=== PATIENT | male | born 1930 | race Caucasian/White ===

== ENCOUNTER 2017-12-02 09:29 | Emergency (ER) | payer MEDICARE, BC ==
[2017-12-02 10:01] LABS: #Lymphocytes 0.7 thou/uL (1.20-3.40); #Monocytes 0.5 thou/uL (0.11-0.59); #Neutrophils 4.8 thou/uL (1.40-6.50); %Basophils 0.6 % (0.0-1.0); %Eosinophils 0.8 % (0.0-10.0); %Lymphocytes 11.1 % (21.0-51.0); %Monocytes 8.4 % (0.0-10.0); %Neutrophils 79.1 % (42.0-75.0); Hemoglobin 14.6 g/dL (14.0-18.0); Mean Corpuscular HGB CONC 33.9 g/dL (32.0-36.0); Mean Corpuscular Volume 88.4 fl (80.0-94.0); Mean Platelet Volume 7.2 fL (7.4-10.4); Platelet Count 235 thou/uL (130-400); RBC Distribution Width 11.8 % (11.5-14.5); Red Blood Cell (RBC) Count 4.86 mill/uL (4.70-6.10); White Blood Cell (WBC) Count 6.1 thou/uL (4.8-10.8)
[2017-12-02 10:22] LABS: ALT (SGPT) 14 U/L (8-55); AST (SGOT) 18 U/L (5-34); Albumin 4.1 g/dL (3.4-4.8); Alkaline Phosphatase 79 U/L (40-150); Anion Gap 11 mmol/L (10-20); BUN (Urea Nitrogen) 15 mg/dL (8.4-25.7); Bilirubin, Total 1.2 mg/dL (0.2-1.2); Calc. Creatinine Clearance 0 mL/min (70-130); Calcium 9.2 mg/dL (7.8-10.44); Carbon Dioxide 30 mmol/L (23-31); Chloride 95 mmol/L (98-107); Estimated GFR-MDRD 56; Globulin 3.4 g/dL (2.4-3.5); Glucose 123 mg/dL (83-110); Potassium 4.1 mmol/L (3.5-5.1); Protein, Total 7.5 g/dL (5.8-8.1); Sodium 132 mmol/L (136-145)
[2017-12-02 10:25] LABS: CKMB 2.4 ng/mL (0-6.6)
--- NOTE | 2017-12-02 10:31 | RAD ---
RADIOGRAPH CHEST 1 VIEW: HISTORY: 87-year-old male with nausea and emesis. FINDINGS: The thoracic aorta is tortuous and ectatic. There is no evidence of air space density, pneumothorax, or pulmonary edema. The lateral costophrenic angles are sharp. There are sternotomy wires. IMPRESSION: 1. No acute pulmonary findings. 2. Ectasia of thoracic aorta. 3. Status post open heart surgery. aleisha romero POS: [facility]
[2017-12-02 11:03] LABS: Bilirubin Negative (Negative); Blood, Urine Negative (Negative); Glucose, Urine (Dipstick) Negative (Negative); Leukocyte Negative (Negative); Nitrite Negative (Negative); Protein, Urine (Dipstick) Negative (Neg-Trace); Urobilinogen 0.2 mg/dL (0.2-1.0)
[2017-12-02 11:04] LABS: Clarity Clear (Clear)
== END 2017-12-02 13:26 | disposition home or self-care (01) ==
LOC: ERS 09:29
DX: B34.9 Viral infection, unspecified (principal); E78.5 Hyperlipidemia, unspecified; I10 Essential (primary) hypertension; Z79.82 Long term (current) use of aspirin; Z79.01 Long term (current) use of anticoagulants; Z79.899 Other long term (current) drug therapy
CPT/HCPCS: 36415; 71045; 80053; 81003; 82553; 84484; 85025; 93005

== ENCOUNTER 2017-12-08 03:15 | Emergency (ER) | payer MEDICARE, BC ==
[2017-12-08 03:46] LABS: #Basophils 0.1 thou/uL (0.0-0.2); #Eosinphils 0.1 thou/uL (0.0-0.7); #Lymphocytes 1.5 thou/uL (1.20-3.40); #Monocytes 0.8 thou/uL (0.11-0.59); #Neutrophils 5.1 thou/uL (1.40-6.50); %Basophils 0.7 % (0.0-1.0); %Eosinophils 1.2 % (0.0-10.0); %Lymphocytes 19.6 % (21.0-51.0); %Monocytes 10.9 % (0.0-10.0); %Neutrophils 67.5 % (42.0-75.0); Hemoglobin 14.7 g/dL (14.0-18.0); Mean Corpuscular HGB CONC 33.1 g/dL (32.0-36.0); Mean Corpuscular Hemoglobin 29.1 pg (27.0-31.0); Mean Corpuscular Volume 88.1 fl (80.0-94.0); Mean Platelet Volume 7.2 fL (7.4-10.4); Platelet Count 237 thou/uL (130-400); Red Blood Cell (RBC) Count 5.05 mill/uL (4.70-6.10); White Blood Cell (WBC) Count 7.5 thou/uL (4.8-10.8)
[2017-12-08 04:00] LABS: Bilirubin Negative (Negative); Blood, Urine Negative (Negative); Clarity CLEAR (Clear); Glucose, Urine (Dipstick) Negative (Negative); Leukocyte Negative (Negative); Nitrite Negative (Negative); Protein, Urine (Dipstick) Negative (Neg-Trace); Urobilinogen 0.2 mg/dL (0.2-1.0); pH, Urine 7.5 (5.0-9.0)
[2017-12-08 04:06] LABS: ALT (SGPT) 14 U/L (8-55); AST (SGOT) 16 U/L (5-34); Albumin 4.3 g/dL (3.4-4.8); Alkaline Phosphatase 81 U/L (40-150); Anion Gap 11 mmol/L (10-20); BUN (Urea Nitrogen) 16 mg/dL (8.4-25.7); Bilirubin, Total 1.5 mg/dL (0.2-1.2); Calc. Creatinine Clearance 0 mL/min (70-130); Calcium 10.1 mg/dL (7.8-10.44); Carbon Dioxide 28 mmol/L (23-31); Chloride 97 mmol/L (98-107); Estimated GFR-MDRD 56; Globulin 3.5 g/dL (2.4-3.5); Glucose 103 mg/dL (83-110); Potassium 3.8 mmol/L (3.5-5.1); Protein, Total 7.8 g/dL (5.8-8.1); Sodium 132 mmol/L (136-145)
== END 2017-12-08 05:56 | disposition home or self-care (01) ==
LOC: ERS 03:15
DX: R19.7 Diarrhea, unspecified (principal); E78.5 Hyperlipidemia, unspecified; I10 Essential (primary) hypertension; Z79.82 Long term (current) use of aspirin; Z79.899 Other long term (current) drug therapy
CPT/HCPCS: 36415; 80053; 81003; 85025; 99284

== ENCOUNTER 2017-12-20 08:34 | Outpatient (CLI) | payer MEDICARE, BC ==
[2017-12-20] MEDS ORDERED: ISOVUE-370 76%-LOCM 1 ML ONE (13:23)
== END 2017-12-20 08:35 | disposition home or self-care (01) ==
LOC: BICCT 08:34
PROVIDERS: ATTEND Internal Medicine Gastroenterology
DX: R63.4 Abnormal weight loss (principal); K30 Functional dyspepsia; R53.83 Other fatigue; R42 Dizziness and giddiness; K80.80 Other cholelithiasis without obstruction; K57.30 Diverticulosis of large intestine without perforation or abscess without bleeding; I71.4 Abdominal aortic aneurysm, without rupture; N28.89 Other specified disorders of kidney and ureter; Z86.010 Personal history of colon polyps
CPT/HCPCS: 74177

== ENCOUNTER 2017-12-24 09:06 | Outpatient (CLI) | payer MEDICARE, BC ==
--- NOTE | 2017-12-24 12:48 | CT ---
CHEST CT WITH CONTRAST: HISTORY: Renal mass. The patient was recently diagnosed with left kidney cancer. Evaluate for metastases. COMPARISON: None. TECHNIQUE: Chest CT performed with IV contrast. Coronal reformatted images are submitted for interpretation. FINDINGS: No mediastinal mass, lymphadenopathy, or hematoma. Heart size is within normal limits. No pericardi al effusion. There are coronary artery calcifications. There is mild dilatation of the ascending th oracic aorta measuring 4.4 x 4.1 cm. The descending thoracic aorta is tortuous. Visualized upper solid organs are grossly unremarkable. Multiple hypodensities in the right renal co rtex are compatible with cysts. CT evidence of cholelithiasis without evidence of cholecystitis. Trace bilateral pleural effusions. Adjacent scar/atelectasis. Calcified granuloma in the right lowe r lobe. No consolidation or mass. No pneumothorax. No lytic or blastic lesions in the osseous structures. IMPRESSION: 1. No evidence of parenchymal metastases. 2. Trace bilateral effusions. Adjacent scar and atelectasis. 3. CT evidence of cholelithiasis without evidence of cholecystitis. 5. Hypodensities in the right kidney compatible with simple/complex cyst. POS: [facility]
--- NOTE | 2017-12-24 15:35 | NM ---
WHOLE BODY BONE SCAN: Date: 12-24-17 History: Recent diagnosis of left kidney cancer. Evaluate for metastatic disease. Other specified dis orders of kidney and ureter. Radiopharmaceutical: 33 mCi Technetium 99M labelled MDP, IV. Views: Anterior posterior whole body. FINDINGS: There is mild increased uptake seen in the shoulders and bilateral knees as well as right foot in a d egenerative pattern. Focus of increased uptake is also seen at the base of the left thumb, also proba kalin related to degenerative changes. There are focal areas of increased uptake seen within right anterior upper ribs with the focal areas of increased uptake layering in a linear fashion. Probably representing the right 4th through 6th rib . There is slight sclerosis involving the right 4th, 5th, and 6th ribs anterolaterally which may acco unt for this finding representing remote fractures. No additional areas of abnormal uptake of radiotr acer is seen. Normal uptake is seen in the region of the kidneys and urinary bladder. IMPRESSION: 1. Focal areas of increased uptake within the right fourth through sixth anterior ribs which is likel y related to prior trauma as opposed to metastatic disease. There are no other abnormal areas of upta ke of radiotracer to seen to suggest osseous metastatic disease. 2. Degenerative changes. POS: [facility]
[2017-12-24] MEDS ORDERED: Iopamidol 370 76% 100 ML VIAL ONE (16:04)
== END 2017-12-24 09:07 | disposition home or self-care (01) ==
LOC: CT 09:06
PROVIDERS: ATTEND Urology
DX: N28.89 Other specified disorders of kidney and ureter (principal); I71.4 Abdominal aortic aneurysm, without rupture; I82.3 Embolism and thrombosis of renal vein; J98.11 Atelectasis; J98.4 Other disorders of lung
CPT/HCPCS: 71260; 78306; A9503

== ENCOUNTER 2018-01-04 07:49 | Outpatient (CLI) | payer MEDICARE, BC ==
[2018-01-04] MEDS ORDERED: Gadobenate Dimeglumine 529 MG/1 ML (20ML VIAL) ONE (13:51)
--- NOTE | 2018-01-06 19:28 | MRI ---
MRI OF THE PELVIS WITHOUT AND WITH CONTRAST: Comparison: MRI abdomen, 01-04-18 History: Left renal mass. Technique: Multiplanar, multisequence MRI images of the pelvis without and with IV contrast. FINDINGS: The mass in the lower pole of the left kidney cannot be seen on this examination. There dilatation of the infrarenal aorta. On this exam, it measures 4.7 cm in maximum dimension. This measured slightly larger just superior to the superior most slice of this exam. There is also aneurysmal dilatation of the bilateral common iliac arteries. The right common iliac artery measures 3.2 cm in greatest dimens ion. The left common iliac artery measures 2.8 cm in greatest dimension. No retroperitoneal adenopath y is seen. There is scattered diverticula in the colon. No marrow signal abnormality is present. IMPRESSION: 1. Annual dilatation of the infrarenal aorta and bilateral common iliac arteries. 2. Diverticulosis. POS: [facility]
--- NOTE | 2018-01-06 19:50 | MRI ---
MRI OF THE ABDOMEN WITHOUT AND WITH CONTRAST: Comparison: CT chest, 12-24-17. 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 Technique: Multiplanar, multisequence MRI images were obtained of the abdomen without and with IV con trast. FINDINGS: There is a large heterogeneously enhancing mass involving the lower pole of the left kidney measuring 8.2 cm in greatest dimension. There is expansion of the left renal vein with enhancing tumor thrombu s. Tumor thrombus extends into the inferior vena cava near the renal vein insertion and does not exte nd into the intrahepatic inferior vena cava. The tumor in the left kidney is extremely vascular and t here are multiple varices and increased blood supply to this tumor. There appears to be only a single left renal artery. However, there is aneurysmal dilatation of the ostium of the left renal artery wh ich measures 1.2 cm in width. A single renal artery is also seen on the right. No enlarged retroperitoneal lymph nodes. The infrarenal aorta is enlarged and measures approximately 4.9 cm in maximum dimension. There are nonenhancing foci of high T2 signal in the right kidney measur ing up 2.7 cm in size which represents simple cysts. The liver, gallbladder, adrenal glands, and spleen are unremarkable. There is a tiny nonenhancing wel l circumscribed focus of high T2 signal in the inferior portion of the pancreas measuring 8 mm in siz e which may represent a small cyst. There is a nonenhancing bilobed lesion demonstrating high T2 sign al in the body of the pancreas measuring 1.7 cm in size which may also represent a cyst although a pa ncreatic neoplasm cannot be excluded. No retroperitoneal adenopathy is seen. No marrow signal abnormality is present. IMPRESSION: 1. There is a mass in the left kidney which is concerning for a T3B renal cell carcinoma. This would be a Lucio stage 3A malignancy. 2. Aneurysmal dilatation of the infrarenal aorta. 3. There is aneurysmal enlargement of the takeoff of the left renal artery as above. 4. Right renal cyst. 5. Nonenhancing foci of high T2 signal in the pancreas may represent small pancreatic cyst. Cystic pa ncreatic neoplasm cannot be entirely excluded. POS: [facility]
== END 2018-01-04 07:50 | disposition home or self-care (01) ==
LOC: MRI 07:49
PROVIDERS: ATTEND Urology
DX: N28.89 Other specified disorders of kidney and ureter (principal); I71.4 Abdominal aortic aneurysm, without rupture; I82.3 Embolism and thrombosis of renal vein; I77.811 Abdominal aortic ectasia; N28.1 Cyst of kidney, acquired; K86.89 Other specified diseases of pancreas; K57.90 Diverticulosis of intestine, part unspecified, without perforation or abscess without bleeding
CPT/HCPCS: 72197; 74183; A9579

== ENCOUNTER → 2018-01-09 | Day surgery (SDC) | payer MEDICARE, BC ==
[~2018-01-09] MED LIST: Iopamidol 370 76% 100 ML VIAL ONE
--- NOTE | 2018-01-09 15:51 | CT ---
CT ANGIOGRAM ABDOMEN AND PELVIS WITH AND WITHOUT IV CONTRAST AND 3D RECONSTRUCTION IMAGES: Date: 01/09/18 HISTORY: Abdominal aortic aneurysm without rupture. COMPARISON: MRI abdomen dated 01/04/18. FINDINGS: As noted on the MRI examination, there is a large inferior pole heterogeneously enhancing left renal mass with extension of tumor thrombus into the left renal vein with expansion of the left renal vein and extension of tumor thrombus into the IVC. Right renal cysts are again present. There is mild inflammatory stranding seen on the left with prominent vessels in the left perirenal sp malgorzata, likely related to the heterogeneously enhancing tumor with increased vascular supply. The heart is at the upper limits of normal in size. There is bibasilar atelectasis with calcified granuloma at the right lung base. There is slight nodul ar density at the posterior right costophrenic angle, but this is most likely attributable to atelect asis as well. No discrete noncalcified pulmonary nodule is appreciated at either lung base. There is an infrarenal abdominal aortic aneurysm which extends to the level of the bifurcation which measures approximately 7.6 cm craniocaudal x 5.0 cm AP x 4.9 cm transverse. Again, this aneurysm exte nds to the aortic bifurcation where there is eccentric plaque and small outpouchings of contrast, whi ch could be related to either penetrating atheromatous ulcers or irregular atherosclerotic plaques. There is aneurysmal dilatation of the origin of the proximal left renal artery which measures 1.6 cm. This likely represents a saccular-type aneurysm with focal narrowing involving the proximal left norman al artery as well. There is mild to moderate narrowing involving the proximal single right renal raimundo ry. There is aneurysmal dilatation of the right common iliac artery, which measures 3.1 cm in maximal dim ensions with eccentric atherosclerotic plaque. There is also aneurysmal dilatation of the left common iliac artery measuring 2.8 cm in diameter. There is severe narrowing involving the origin and proximal aspect of the celiac artery with associat ed post-stenotic dilatation. The liver, spleen, pancreas, bilateral adrenal glands, and urinary bladder demonstrate a normal CT ap pearance. There is colonic diverticulosis. Degenerative changes are seen in the spine. There is a sclerotic density seen at T12 vertebral body l ikely related to a bone island. There is also a small bone island in the right femoral neck. Degenera tive changes are seen in the spine. No lytic lesion is visualized. There is a small sclerotic density in the lateral right 9th rib, which is difficult to characterize, but probably related to a bone isl and. Calcification seen in the dependent portion of the gallbladder lumen related to cholelithiasis. There is a 2.3 cm x 1.6 cm soft tissue density seen in the right aspect of the pelvis. This has calci fication seen at the periphery and could potentially represent a thrombosed aneurysm, but the lumen o f the right internal iliac artery appears to demonstrate mild bowing laterally. An extrinsic lesion i s felt less likely and is thought to be related to a thrombosed aneurysm. IMPRESSION: 1. Heterogeneously enhancing left renal mass, most compatible with renal cell carcinoma, with extens ion of tumor thrombus into the left renal vein and subsequently into the IVC with expansion of the le ft renal vein, as well as IVC in the region of tumor thrombus. 2. 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 3. Infrarenal abdominal aortic aneurysm with eccentric atherosclerotic plaque. The aneurysm extends to the aortic bifurcation with small areas of contrast extending into the areas of plaque, which coul d be related to associated penetrating atheromatous ulcerations or irregularity of the plaque. 4. 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 5. Severe narrowing involving the origin and proximal aspect of the celiac artery with associated po st-stenotic dilatation. Some of the narrowing may be related to associated arcuate ligament. 6. Cholelithiasis. 7. Remainder of the findings are as described above. POS: [facility]
== END ==
LOC: CT 12:30 → RAD 12:31
PROVIDERS: ATTEND Thoracic Surgery (Cardiothoracic Vascular Surgery)
DX: I71.4 Abdominal aortic aneurysm, without rupture (principal); N28.89 Other specified disorders of kidney and ureter; Q27.39 Arteriovenous malformation, other site; Q27.32 Arteriovenous malformation of vessel of lower limb; K80.20 Calculus of gallbladder without cholecystitis without obstruction; K57.30 Diverticulosis of large intestine without perforation or abscess without bleeding; Z88.8 Allergy status to other drugs, medicaments and biological substances
CPT/HCPCS: 74174; 82565

== ENCOUNTER 2018-01-14 05:40 | Day surgery (SDC) | payer MEDICARE, BC ==
[2018-01-11 14:27] VITALS: BMI 25.7
[2018-01-14 06:49] LABS: #Eosinphils 0.1 thou/uL (0.0-0.7); #Lymphocytes 0.7 thou/uL (1.20-3.40); #Monocytes 0.4 thou/uL (0.11-0.59); #Neutrophils 3.8 thou/uL (1.40-6.50); %Basophils 0.6 % (0.0-1.0); %Lymphocytes 13.7 % (21.0-51.0); %Monocytes 8.7 % (0.0-10.0); %Neutrophils 74.9 % (42.0-75.0); Hemoglobin 13.5 g/dL (14.0-18.0); Mean Corpuscular HGB CONC 33.9 g/dL (32.0-36.0); Mean Corpuscular Hemoglobin 29.5 pg (27.0-31.0); Mean Corpuscular Volume 87.1 fl (80.0-94.0); Mean Platelet Volume 6.3 fL (7.4-10.4); Platelet Count 201 thou/uL (130-400); RBC Distribution Width 12.3 % (11.5-14.5); Red Blood Cell (RBC) Count 4.57 mill/uL (4.70-6.10); White Blood Cell (WBC) Count 5.1 thou/uL (4.8-10.8)
[2018-01-14 07:07] LABS: Anion Gap 10 mmol/L (10-20); BUN (Urea Nitrogen) 13 mg/dL (8.4-25.7); Calc. Creatinine Clearance 47 mL/min (70-130); Calcium 9.1 mg/dL (7.8-10.44); Carbon Dioxide 27 mmol/L (23-31); Chloride 99 mmol/L (98-107); Estimated GFR-MDRD 57; Glucose 98 mg/dL (83-110); Potassium 3.6 mmol/L (3.5-5.1); Sodium 132 mmol/L (136-145)
[2018-01-14] MEDS ORDERED: Lidocaine 1% (PF) 30 ML VIAL ONE (07:52)
[2018-01-14] MEDS ORDERED: Midazolam HCl 2 mg/2 ml Vial ONE (08:20)
[2018-01-14] MEDS ORDERED: Fentanyl 250 MCG/5 ML VIAL ONE (08:20)
[2018-01-14] MEDS ORDERED: Iopamidol 370 76% 50 ML VIAL FS ONE (09:10)
--- NOTE | 2018-01-14 09:46 | OP ---
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 PROCEDURES: 1. Abdominal aortogram. 2. Right internal iliac artery angiogram. SURGEON: Dr. Hever Muniz ANESTHESIA: 1% lidocaine for local/1 mg Versed/25 mcg of fentanyl. FLUORO TIME: 22.4 minutes. CONTRAST TIME: 40 mL. PROCEDURE IN DETAIL: After consent was obtained, the patient was brought to radiographer cardiac catheterization, placed in supine position on radiographer cardiac catheterization table. Appropriate anesthetic monitor was placed. IV sedation was begun. Left groin was anesthetized with 1 % lidocaine. Ultrasound guidance was used to access the femoral artery percutaneously on the left side. A Contra catheter was passed into the abdominal aorta. Hand injected aortogram was performed illuminating the bifurcation. The catheter was guided down into the internal iliac artery. Multiple views and multiple hand injected arteriograms were performed to open up the iliac bifurcation. The internal iliac was grossly aneurysmal with multiple fenestrations. The angled Glidewire and a Shakir followed by a MINDA catheter were used to attempt to cannulate the internal iliac artery where it exited the aneurysmal portion of the internal iliac. I was never able to get into this internal iliac artery to allow us to embolize. Catheters and guidewires were removed. Manual pressure was held for hemostasis. I will have to have a longer discussion with he and his in regards to how to deal with his aneurysmal disease at this point. [facility]
== END 2018-01-14 13:53 | disposition home or self-care (01) ==
LOC: CCL 05:40
PROVIDERS: ATTEND Thoracic Surgery (Cardiothoracic Vascular Surgery)
PROC: B4001ZZ Plain Radiography of Abdominal Aorta using Low Osmolar Contrast (ICD-10-PCS; principal; 2018-01-14)
DX: I71.4 Abdominal aortic aneurysm, without rupture (principal); I25.10 Atherosclerotic heart disease of native coronary artery without angina pectoris; I10 Essential (primary) hypertension; E78.2 Mixed hyperlipidemia; N40.0 Benign prostatic hyperplasia without lower urinary tract symptoms; Z88.1 Allergy status to other antibiotic agents; Z88.2 Allergy status to sulfonamides; Z88.8 Allergy status to other drugs, medicaments and biological substances; Z95.1 Presence of aortocoronary bypass graft; Z82.49 Family history of ischemic heart disease and other diseases of the circulatory system
CPT/HCPCS: 36246; 75710; 76942; 80048; 85025; C1769 ×3; 36415; 99152; 99153; J1644; J2001; J2250; J3010

== ENCOUNTER 2018-03-04 07:54 | Inpatient (IN) | payer MEDICARE, BC ==
[2018-03-04] MEDS ORDERED: Lidocaine 1% w/Epinephrine 1:100K 20 ML VIAL ONE (08:30)
[2018-03-04 08:47] LABS: Bilirubin Negative (Negative); Blood, Urine Trace (Negative); Clarity CLEAR (Clear); Glucose, Urine (Dipstick) Negative (Negative); Leukocyte Negative (Negative); Nitrite Negative (Negative); Protein, Urine (Dipstick) Negative (Neg-Trace); Specific Gravity, Urine 1.006 (1.002-1.036); Urobilinogen 0.2 mg/dL (0.2-1.0); pH, Urine 7.5 (5.0-9.0)
[2018-03-04 08:49] LABS: #Basophils 0.1 thou/uL (0.0-0.2); #Eosinphils 0.2 thou/uL (0.0-0.7); #Lymphocytes 0.8 thou/uL (1.20-3.40); #Monocytes 0.6 thou/uL (0.11-0.59); #Neutrophils 7.6 thou/uL (1.40-6.50); %Basophils 0.6 % (0.0-1.0); %Eosinophils 1.8 % (0.0-10.0); %Lymphocytes 8.8 % (21.0-51.0); %Monocytes 6.5 % (0.0-10.0); %Neutrophils 82.3 % (42.0-75.0); Hemoglobin 11.7 g/dL (14.0-18.0); Mean Corpuscular HGB CONC 33.4 g/dL (32.0-36.0); Mean Corpuscular Hemoglobin 29.4 pg (27.0-31.0); Mean Corpuscular Volume 88.1 fl (80.0-94.0); Mean Platelet Volume 6.5 fL (7.4-10.4); Platelet Count 365 thou/uL (130-400); RBC Distribution Width 13.4 % (11.5-14.5); Red Blood Cell (RBC) Count 3.97 mill/uL (4.70-6.10); White Blood Cell (WBC) Count 9.2 thou/uL (4.8-10.8)
[2018-03-04 08:49] LABS: Bacteria/HPF None Seen HPF (None Seen); Hyaline Casts/LPF 0-3 HYALINE CAST LPF (0-3 Hyaline); RBC/HPF 0-3 HPF (0-3); Squamous Epithelial None Seen HPF (0-3); WBC/HPF 0-3 HPF (0-3)
[2018-03-04 08:56] LABS: INR-International Normal Ratio 1.1; PTT 28.2 SEC (22.9-36.1)
--- NOTE | 2018-03-04 09:10 | RAD ---
PORTABLE CHEST: Date: 03/04/18 HISTORY: Fall. COMPARISON: 12/02/17. FINDINGS: There is patchy infiltrate in the right lung base. Upper lung ybarra are clear. No evidence of vascul ar congestion. Heart size upper normal and stable. Postop sternotomy changes. IMPRESSION: Evidence of infiltrate in the right lower lung. POS: [facility]
[2018-03-04 09:12] LABS: ALT (SGPT) 17 U/L (8-55); AST (SGOT) 18 U/L (5-34); Albumin 3.8 g/dL (3.4-4.8); Alkaline Phosphatase 65 U/L (40-150); Anion Gap 13 mmol/L (10-20); BUN (Urea Nitrogen) 16 mg/dL (8.4-25.7); Bilirubin, Total 0.7 mg/dL (0.2-1.2); CK (CPK) 58 U/L (30-200); Calc. Creatinine Clearance 0 mL/min (70-130); Calcium 9.4 mg/dL (7.8-10.44); Carbon Dioxide 28 mmol/L (23-31); Chloride 98 mmol/L (98-107); Estimated GFR-MDRD 32; Glucose 138 mg/dL (83-110); Potassium 4.6 mmol/L (3.5-5.1); Protein, Total 6.8 g/dL (5.8-8.1); Sodium 134 mmol/L (136-145)
[2018-03-04 09:16] LABS: Troponin I Less than 0.010 ng/mL (< 0.028)
[2018-03-04] MEDS ORDERED: Adacel (T-DAP) 0.5 ML VIAL ONE (09:57)
--- NOTE | 2018-03-04 10:13 | CT ---
CT BRAIN WITHOUT CONTRAST: HISTORY: Fall, possible loss of consciousness, the patient is on blood thinners. Laceration to the posterior s calp, headache. FINDINGS: No evidence of acute infarction, hemorrhage, midline shift, or abnormal extraaxial fluid collections is seen. The ventricular size is appropriate and the basilar cisterns patent. The bony calvarium is intact. The visualized paranasal sinuses and mastoid air cells are well aerated. There is a scalp contusion in the left posterior parietal region. IMPRESSION: No CT evidence of acute intracranial process. POS: [facility]
--- NOTE | 2018-03-04 10:27 | CT ---
NONCONTRAST CT CERVICAL SPINE: DATE: 03/04/18. HISTORY: Unwitnessed fall. Patient on blood thinners. Laceration of posterior scalp. Injury after fall. TECHNIQUE: Contiguous axial CT images are obtained through the cervical spine to the level of the T3 vertebral b jp without IV contrast. Sagittal and coronal reformatted images are provided. FINDINGS: No acute fracture or subluxation is seen involving the cervical spine. Multilevel degenerative perez es are present with multilevel prominent bridging anterior osteophytes noted. There is narrowing of the intervertebral disk spaces at all levels of the cervical spine. Multilevel facet hypertrophic ch anges are present. At the C3-4 level, there is severe right-sided neural foraminal narrowing due to prominent uncinate p rocess hypertrophy and facet degenerative changes with moderate left-sided neural foraminal narrowing . There is moderate bilateral neural foraminal narrowing at the C4-5 level, again related to bony en croachment. There is mild to moderate bilateral neural foraminal narrowing at C5-6 level with mild t o moderate bilateral neural foraminal narrowing at the C6-7 level. There is no fracture or subluxation involving the cervical spine. Prevertebral soft tissues are within normal limits. There is partial visualization of a right pleural effusion. Median sternotomy wires are partially imaged. IMPRESSION: 1. Multilevel degenerative changes involving the cervical spine. No fracture or subluxation is pres ent. 2. Right pleural effusion incompletely imaged on this exam. POS: [facility]
--- NOTE | 2018-03-04 11:04 | CT ---
CT ABDOMEN AND PELVIS WITHOUT CONTRAST: HISTORY: Fall, recent nephrectomy 2 weeks ago, abdominal pain. FINDINGS: Comparison is made with the CTA of the abdomen and pelvis of 01/09/18. Absence of oral and IV contrast reduces the sensitivity of the exam, particularly for evaluation of s olid organs, vascular structures, and bowel. A small right pleural effusion is present which is enlarged in size since the previous study. No bashir e air is seen in the abdomen or pelvis. Thee is a small amount of free fluid in the abdomen and pelv is. The abdominal fluid is predominantly in the left retroperitoneum. There are interval postop mignon nges of left nephrectomy. Right-sided renal cysts are again seen. There is a tiny calculus in the anterior cortex of the left kidney. No calculi are seen of the right kidney. No calculi are seen in the right ureter or the uri nary bladder. There is a Spivey catheter in the urinary bladder. There is colonic diverticulosis. There are vascular calcifications with a stable 5 cm (AP dimension) abdominal aortic aneurysms in the right common iliac artery (3 cm), left common iliac artery (2.8 cm ), and right internal iliac artery (2.3 cm) is stable. There are degenerative changes in the spine. IMPRESSION: 1. Absence of IV contrast reduces the sensitivity of the exam. Solid organ injury cannot be complet lee excluded on the study. 2. Right pleural effusion. 3. A small amount of free fluid in the abdomen and pelvis. 4. Interval changes of left nephrectomy. 5. Stable aneurysms of the abdominal aorta, common iliac arteries, and the right internal iliac raimundo viet. 6. Colonic diverticulosis. 7. Right renal cysts. POS: [facility]
[2018-03-04 12:02] LABS: Troponin I 0.011 ng/mL (< 0.028)
[2018-03-04] MEDS ORDERED: Ondansetron ODT 4 MG TAB SL PRN (12:28)
[2018-03-04] MEDS ORDERED: Acetaminophen 325 MG TAB PO PRN (12:28)
[2018-03-04] MEDS ORDERED: Ondansetron HCl/PF 4 MG/2 ML Vial IVP PRN (12:28)
[2018-03-04 12:35] VITALS: BMI 24.6
[2018-03-04] MEDS ORDERED: Zolpidem Tartrate 5 MG TAB PO SCH (20:00)
[2018-03-04] MEDS ORDERED: traMADol HCl 50 MG TAB PO PRN (20:46)
[2018-03-04] MEDS: Sodium Chloride 0.9% 1,000 ML IV SCH (20:56)
[2018-03-04] MEDS: Docusate 100 MG CAP PO SCH (20:59)
[2018-03-04] MEDS: Tamsulosin HCl 0.4 MG CAP PO SCH (21:00)
[2018-03-04] MEDS: Atorvastatin Calcium 10 MG TAB PO SCH (21:00)
[2018-03-04] MEDS: Aspirin 81 mg Enteric Coated Tablet PO SCH (21:00)
[2018-03-04] MEDS ORDERED: Lorazepam 1 MG TAB PO SCH (23:30)
--- NOTE | 2018-03-04 23:46 | HP ---
DATE OF ADMISSION: 03/04/2018 CHIEF COMPLAINT: Found down at home. HISTORY OF PRESENT ILLNESS: This is an 87-year-old male patient of Dr. Italo Pandya'graciela who was found in his kitchen this morning by his at about 7:30, lying in a pool of his own blood fro m head laceration. Patient did not remember getting out of bed this morning, but evidently he had go ne out to get the newspaper head it on the kitchen table and was about to read, which was his usual a nd he evidently fell and hit his head causing the laceration. Since then he has not had any other co mplaints regarding his memory. He remembers all events leading up to last night when he went to bed, although his states that since his left nephrectomy 2 weeks ago at [facility], he has not sl ept well at all, any night. They have tried some melatonin for him, but that did not help at all act ually made him a little worse. He denies having any double vision or headaches, dizziness, or ringin g in his ears. Denies any chest discomfort or shortness of breath or nausea or vomiting, denies any changes to his bowels with this. He has a past medical history of a recent diagnosis of renal cell c arcinoma, being treated from [facility], also has a history of AAA asymptomatic, 5 cm AAA being fo llowed by Dr. Hever Muniz also has history of hypertension, hyperlipidemia, and BPH with lower urin saundra tract symptoms. He has a surgical history of left nephrectomy 2 weeks ago at [facility]. He also has a known 5-cm AAA that was an angiogram done by Dr. Muniz in December show an aneurysm, also ext ending to the right iliac with a need for embolization of the internal iliac. 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 MEDICATIONS: Tramadol, which has not really taken much of, melatonin 5 mg, Lipitor 10 mg a day, hydr ochlorothiazide 25 mg a day, Proscar 5 mg a day, Flomax 0.4 mg a day, and aspirin 81 mg a day. ALLERGIES: AMPICILLIN, PENICILLIN, CIPRO, and SULFA. Also has allergies to ZYRTEC and FIORELLA, both of those are more of an anxiety reaction after taking ZYRTEC and FIORELLA. SOCIAL HISTORY: He is . He is a retired gate agent. No smoking or alcohol. No illicit marsh bits. REVIEW OF SYSTEMS: As stated in the HPI, he denies any headache or visual changes, no troubles chewi ng or swallowing. No troubles with vision, smell, hearing, or taste. Denies any trouble with swallo wing. No troubles with cough, congestion, shortness of breath. No troubles with abdominal pain. No nausea or vomiting. No changes in bowel or bladder habits. Had a BM this morning, it was normal. Denies any hematemesis. Denies any melena or hematochezia. He has a Spivey in place since his nephre ctomy. He is scheduled to see Dr. Calderon in the clinic in 2 days for evaluation and to get the Spivey removed. He has had some weakness globally since the surgery, has noted some slight decrease i n exercise or walking tolerance, but has been walking every day since his surgery when he got home wa s not necessarily slow down on any of his usual daily habits. As stated in the HPI, he has not slept well for the last 2 weeks either. Denies any seizures. Denies any auditory or visual hallucination s any suicidal or homicidal ideations. Denies any paresis or paresthesias. PHYSICAL EXAMINATION: GENERAL: He is alert and oriented x4, lying in bed, very comfortably but a little bit restless. VITAL SIGNS: Temperature 97.2, pulse 68, BP is 156/82, respirations 20, O2 sats 93% on room air. HEENT: Essentially unremarkable. Pupils are equal, round, and reactive to light and accommodation. Extraocular movements are intact. His sclerae anicteric. His conjunctiva is not injected. NECK: Supple. No JVD, no bruits, no thyromegaly. LUNGS: Clear to auscultation bilaterally with no rales, rhonchi, or wheezes. HEART: S1, S2 with no rubs, murmurs, or gallops. See it is perceived as a regular rhythm and regula r rate. ABDOMEN: Has a midline efraín and a midline incision that is well healing. There is no erythema, n o drainage. Bowel sounds are positive throughout. His abdomen is soft, nontender, nondistended, no palpable hepatosplenomegaly. GENITOURINARY: Shows Spivey to gravity with yellow urine. EXTREMITIES: Good palpable pulses x4. No cyanosis, clubbing, or edema. NEUROLOGIC: Grossly intact with cranial nerves II-XII are equal and symmetrical. No sensory or therese r deficits noted. Strength is 4/5 in all extremities in both abduction and adduction. LABORATORY DATA AND X-RAY FINDINGS: White count is 9.2, H&H is 11.7 and 35.0 respectively with 365,0 00 platelets. Sodium 134, potassium 4.6, chloride 98, bicarbonate 28, BUN 16, creatinine 1.98, gluco se of 138. His CT of his head was negative for any acute findings, no blood, no evidence of any tumo rs from mets in the renal cell. Appearance on the chest from a CT of the C-spine which was negative other than arthritic type changes showed a slight pleural effusion. His CT of the abdomen and pelvis also showed a slight pleural effusion on the right side, but no other abnormalities in the solid org ans, his aneurysm is unchanged to his abdominal aorta as well as iliacs. He had troponins done and t hey were all negative x3. His beta-natriuretic peptide is 86. His CK is 58. CK-MB is normal at 2.0 . ASSESSMENT: Syncopal collapse with head laceration, which was treated in the emergency room. It is possible that what we are dealing with his sleep deprivation and fatigue from that resulting in this collapse. PLAN: We will continue some IV fluids here tonight, see if this help him sleep better tonight and ho pefully home in the morning.
[2018-03-05] MEDS ORDERED: Lorazepam 2 MG/ML VIAL SLOW IVP SCH (02:15)
[2018-03-05] MEDS ORDERED: ALPRAZolam 1 MG TAB PO SCH ×2 (06:15→20:00)
[2018-03-05] MEDS: Sodium Chloride 0.9% 1,000 ML IV SCH ×2 (06:17→16:59)
[2018-03-05] MEDS: Hydrochlorothiazide 25 MG TAB PO SCH (09:49)
[2018-03-05] MEDS: Docusate 100 MG CAP PO SCH ×2 (09:49→22:34)
[2018-03-05] MEDS: Finasteride 5 MG TAB PO SCH (09:49)
[2018-03-05] MEDS ORDERED: ALPRAZolam 1 MG TAB PO PRN (13:42)
--- NOTE | 2018-03-05 18:24 | CON ---
DATE OF CONSULTATION: 03/05/2018 REFERRING: Dr. Kelton Flores for urinary retention. HISTORY OF PRESENT ILLNESS: Mr. 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 The patient also has multiple aneurysms including left renal artery, abdominal aortic aneurysm. He was referred to [facility] due to complexity of his case. He underwent a left radical nephrectomy, retroperitoneal lymph node dissection IVC level [address] Phillip on 02/18/2018. He has followup appointment in March with Dr. Lombardo. He was discharged with indwelling Spivey catheter due to postop urinary retention at [facility], the amount of postvoid residual is unknown to me. He had a standing appointment with me as a walk-in tomorrow for a voiding trial ; however, he was admitted by Dr. Flores as he fell earlier this morning. CT of the neck and brain is unremarkable. Staging CT of the abdomen and pelvis stone protocol demonstrates no significant pathology of concern. The patient currently resting comfortably with daughter at bedside. He denies constipation , has been passing flatus. Urine output has been clear. PAST MEDICAL HISTORY: Hypertension, diverticulitis, hyperlipidemia, colon polyps, wandering atrial pacemaker, aortic insufficiency, abdominal aortic aneurysm, BPH, history of vasovagal episode, coronary artery disease, urethral stricture. PAST SURGICAL HISTORY: Hernia repair in 1986, cystoscopy, meatal urethral dilatation for wide caliber penile bulbar stricture 12/13/2012, CABG x3 on 06/22, recent left radical nephrectomy, retroperitoneal lymph node dissection, left renal vein and IVC thrombus level 2 at [facility] on 02/18/2018. CURRENT MEDICATIONS: Include Tylenol, Xanax, baby aspirin, Colace, finasteride , hydrochlorothiazide, Ativan, Zofran, tramadol, Flomax, Zofran. SOCIAL HISTORY: Lives at home with good family support. Daughter at bedside. ALLERGIES: SUDAFED, SULFA, AMPICILLIN, CIPROFLOXACIN. PHYSICAL EXAMINATION: VITAL SIGNS: Stable, 98, 64, 12, 96, 180/82. Urine output 650 of clear yellow urine output. GENERAL: Patient appears to be sleeping and easily arousable, alert and oriented. HEENT: Grossly Unremarkable. HEART: Regular rate. LUNGS: Clear. Decreased inspiratory effort. ABDOMEN: Soft. Midline laparotomy incision clean, dry, and intact. Mcgregor are in place. GENITOURINARY: Spivey catheter demonstrating clear yellow urine, uncircumcised testes are descended with no evidence of intratesticular mass. RECTAL: Digital rectal exam demonstrates prostate palpated within the discrete nodularity. No gross fecal impaction is appreciated. EXTREMITIES: No cyanosis, clubbing or edema. PERTINENT LABS AND IMAGING: White count 9, hemoglobin 11, platelet 365, creatinine is 1.98, baseline creatinine is 1.0-1.4. Urinalysis is unremarkable except for trace blood. Chest x-ray: March 04, 2018 no evidence of vascular congestion, that she infiltrated the right lung base CT the abdomen and pelvis without contrast: Right renal cyst, status post left nephrectomy. No hydronephrosis. Stable abdominal aortic, common iliac, right internal iliac artery CT of the brain negative IMPRESSION AND PLAN: 1. Mr. Rosales is an 87-year-old male with history of large left renal mass with IVC tumor thrombus level 2 status post left radical nephrectomy, tumor thrombectomy of IVC level 2 thrombus at [facility]. He has a postop followup at [facility] 2. Postop urinary retention. 3. Recent fall with workup negative. 4. History of benign prostatic hypertrophy. 5. History of urethral stricture. Spivey catheter recently passed without significant issues. The patient is currently on Flomax, Proscar as previous, we will remove Spivey catheter early tomorrow morning for a voiding trial and assess voiding parameters. MTDD
[2018-03-05] MEDS ORDERED: cloNIDine 0.1 MG TAB PO PRN (22:22)
[2018-03-05] MEDS ORDERED: Ondansetron HCl/PF 4 MG/2 ML Vial IVP PRN (22:23)
[2018-03-05] MEDS ORDERED: Ondansetron ODT 4 MG TAB PO PRN (22:23)
[2018-03-05] MEDS: Tamsulosin HCl 0.4 MG CAP PO SCH (22:34)
[2018-03-05] MEDS: Aspirin 81 mg Enteric Coated Tablet PO SCH (22:34)
[2018-03-05] MEDS: Atorvastatin Calcium 10 MG TAB PO SCH (22:34)
[2018-03-05] MEDS: diphenhydrAMINE 25 MG CAP PO PRN (22:35)
[2018-03-05] MEDS: Zolpidem Tartrate 5 MG TAB PO SCH (22:35)
[2018-03-06] MEDS: diphenhydrAMINE 25 MG CAP PO PRN (01:31)
[2018-03-06] MEDS: Sodium Chloride 0.9% 1,000 ML IV SCH (01:36)
[2018-03-06] MEDS ORDERED: cefTRIAXone\\ROCEPHIN 1 GM in Sodium Chloride 0.9% 100 ML IVPB SCH (08:00)
[2018-03-06] MEDS ORDERED: traZODone HCl 50 MG TAB PO PRN (08:15)
[2018-03-06] MEDS: Dextrose 5 %-0.45 % NaCl 1,000 ML IV SCH ×3 (09:30→23:22)
[2018-03-06 09:42] LABS: Bilirubin Negative (Negative); Blood, Urine Trace (Negative); Clarity CLEAR (Clear); Glucose, Urine (Dipstick) Negative (Negative); Leukocyte Small (Negative); Nitrite Negative (Negative); Protein, Urine (Dipstick) Negative (Neg-Trace); Specific Gravity, Urine 1.009 (1.002-1.036); Urobilinogen 0.2 mg/dL (0.2-1.0)
[2018-03-06 09:45] LABS: Bacteria/HPF Rare-Few HPF (None Seen); Hyaline Casts/LPF 0-3 HYALINE CAST LPF (0-3 Hyaline); Pathc Cast-AUWi Flag 0.14 (0-2.49); RBC/HPF 0-3 HPF (0-3); Squamous Epithelial 0-3 HPF (0-3)
[2018-03-06] MEDS: cefTRIAXone\\ROCEPHIN 1 GM in Sodium Chloride 0.9% 100 ML IVPB SCH (10:53)
[2018-03-06] MEDS: Docusate 100 MG CAP PO SCH ×2 (10:58→21:03)
[2018-03-06] MEDS: Hydrochlorothiazide 25 MG TAB PO SCH (10:58)
[2018-03-06] MEDS: Finasteride 5 MG TAB PO SCH (10:58)
--- NOTE | 2018-03-06 11:40 | PRG ---
DATE OF SERVICE: 03/06/2018 SUBJECTIVE: The patient appears frail; however, resting comfortably. at bedside. OBJECTIVE: VITAL SIGNS: Stable. He is afebrile, 97.7, 88, 22, 159/90. Previous I's and O 's 2175 in, 3425 out. ABDOMEN: Soft. The patient had a voiding trial this morning at 4:00 a.m., in which Spivey catheter was removed and unable to void. A bladder scan obtained demonstrates over 400 mL. Due to significant residual, with possible UTI component, a 16-Beninese indwelling Spivey catheter was replaced for true postvoid residual, 550 mL of clear yellow urine output. This is secured to gravity bag. Abdomen is soft. EXTREMITIES: No cyanosis, clubbing, or edema. PERTINENT LABORATORY DATA: No new labs. Creatinine yesterday was 1.98. Troponins are negative. Initial urinalysis was unremarkable for bacteria, negative UA; however, urine culture demonstrates greater than 100,000 Enterococcus and Pseudomonas. The patient has been provided Rocephin by primary care. Recheck UA C /S with replacement of Spivey catheter demonstrates negative nitrites, small leukocytes, 0-3 rbc's, 4-6 wbc's, 0-3 epithelials, rare few bacteria, yellow clear culture. Repeat urine culture is pending. IMPRESSION AND PLAN: Mr. Rosales is an 87-year-old male with, 1. History of benign prostatic hypertrophy. 2. Prior history of soft bulbar stricture. 3. History of large left renal mass with renal vein thrombus, level 2. Underwent left radical nephrectomy, lymph node dissection, thrombectomy at [facility], 02/18/2018. His efraín are removed at bedside. Incision is clean, dry, and intact. Spivey catheter secured. The patient is deconditioned and frail. I discussed the case with Dr. Flores. Agree that the patient is too frail to be discharged home for private care. Therefore, longterm rehab evaluation in progress. We will continue indwelling Spivey catheter for now until repeat urine culture is finalized. Continue benign prostatic hypertrophy medications. MTDD
--- NOTE | 2018-03-06 15:10 | RAD ---
MODIFIED BARIUM SWALLOW IN PRESENCE OF SPEECH THERAPIST: HISTORY: Dysphagia, oropharyngeal phase, feeding difficulties. FINDINGS: Laryngeal penetration is seen. No aspiration or persistent pooling of contrast in the valleculae or piriform sinuses identified. Please see recommendations of the speech therapist for further manageme nt. POS: LONNIE
[2018-03-06] MEDS ORDERED: traZODone HCl 50 MG TAB PO SCH (18:00)
[2018-03-06] MEDS: Atorvastatin Calcium 10 MG TAB PO SCH (21:02)
[2018-03-06] MEDS: Tamsulosin HCl 0.4 MG CAP PO SCH (21:02)
[2018-03-06] MEDS: Aspirin 81 mg Enteric Coated Tablet PO SCH (21:03)
[2018-03-06] MEDS: Zolpidem Tartrate 5 MG TAB PO SCH (21:06)
[2018-03-07] MEDS: Hydrochlorothiazide 25 MG TAB PO SCH (07:38)
[2018-03-07] MEDS: Finasteride 5 MG TAB PO SCH (07:38)
[2018-03-07] MEDS: Docusate 100 MG CAP PO SCH ×2 (07:39→20:32)
--- NOTE | 2018-03-07 11:25 | PRG ---
DATE OF SERVICE: 03/07/2018 SUBJECTIVE: The patient is doing well this morning. He is oriented x2. He was not aware that he wa s in [facility]. Otherwise, he does converse. He is desiring to go home. He is aware that he has a birthday in 2 days. OBJECTIVE: VITAL SIGNS: Temperature 97.8, pulse 74, respirations 14, pulse ox 94, blood pressure 116/72. HEART: Regular rate and rhythm. LUNGS: Clear. ABDOMEN: Soft and nontender. EXTREMITIES: With no edema. LABORATORY DATA: Previous white count is 9.2, H and H 11 and 35. ASSESSMENT: 1. 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 2. Indwelling Spivey catheter. 3. Urinary pyuria. 4. A 5 cm abdominal aortic aneurysm followed by Dr. Hever Muniz. 5. Hypertension. 6. Hyperlipidemia. 7. Benign prostatic hypertrophy. 8. Status post coronary artery bypass grafting, 2014. 9. Dementia. PLAN: 1. Physical therapy. 2. [facility] facility placement. 3. Continue IV antibiotics. 4. Recheck CBC and BMP in the a.m.
[2018-03-07] MEDS: cefTRIAXone\\ROCEPHIN 1 GM in Sodium Chloride 0.9% 100 ML IVPB SCH (11:59)
[2018-03-07] MEDS: Dextrose 5 %-0.45 % NaCl 1,000 ML IV SCH (12:02)
--- NOTE | 2018-03-07 12:29 | PRG ---
DATE OF SERVICE: 03/07/2018 SUBJECTIVE: The patient has been moved from telemetry to medical unit, at bedside. He has been restless, ambulating with assist, however, limited. relates the patient has been confused. PHYSICAL EXAMINATION: VITAL SIGNS: Stable 97.8, 70, 14, 97, 116/72. I's and O's 320 in and 1025 out. Urine output is ely ar yellow. GENERAL: The patient is alert and oriented x2 only, answers questions appropriately. ABDOMEN: Soft. Incision is clean, dry, and intact. Steri-Strips in place. GENITOURINARY: Spivey catheter adequately secured, draining clear yellow urine. LABORATORY DATA: There is no recent labs. Repeat urine culture is pending, currently on Rocephin. IMPRESSION AND PLAN: 1. Mr. Bartolo Rosales is an 87-year-old male with history of large left renal mass with tumor thrombus level 2 status post left radical nephrectomy tumor thrombectomy at [facility] 02/18/2018. Althou gh he has recuperated from his surgery adequately, he was discharged with an indwelling Spivey cathete r due to urinary retention, PVR unknown. He remains frail with limited mobility, confused. He will require [facility] facility rehabilitation to regain his strength. 2. Urinary retention, 550 mL PVR, failed voiding trial on this admission. Continue indwelling Spivey catheter. 3. Questionable urinary tract infection. Initial UA is grossly unremarkable for bacteria. Culture grew out 2 different species. I am unsure if this is true UTI. Repeat culture is pending, however, Rocephin was provided prior to obtaining UA C&S. We will await final urine culture regarding disposi tion regarding antibiotics. Given he has multiple drug allergies, may require Infectious Disease con sult as his mental status/confusion. Etiology is unclear. 4. History of soft bulbar stricture. 5. History of benign prostatic hypertrophy. We will continue to follow. Continue indwelling Spivey catheter for now.
--- NOTE | 2018-03-07 14:38 | PQF ---
DATE: 03-07-18 ATTN: DR. MANNY ARROYO Please exercise your independent, professional judgment in responding to the clarification form. Clinical indicators are provided on the bottom of this form for your review Please check appropriate box(s): [ ] Encephalopathy: Type: [ ] Acute [ ] Subacute [ ] Chronic [ ] Transient Alteration of Awareness [ ] Other diagnosis [ ] Unable to determine In addition, please specify: Present on Admission (POA): [ ] Yes [ ] No [ ] Unable to determine For continuity of documentation, please document condition throughout progress notes and discharge summary. Thank You. CLINICAL INDICATORS - SIGNS / SYMPTOMS / LABS CONSULT NOTE DR. MATOS 03-07-18: HE HAS BEEN RESTLESS, AMBULATING WITH ASSIST, HOWEVER, LIMITED. RELATES THE PATIENT HAS BEEN CONFUSED. GIVEN HI MULTIPLE DRUG ALLERGIES, MAY REQUIRE ID CONSULT HIS MENTAL/CONFUSION, ETIOLOGY IS UNCLEAR. PN DR. ARROYO 03-07-18: HE IS ORIENTED X2. HE WAS NOT AWARE THAT HE WAS IN HOSPITAL. RISK FACTORS: H&P: FALL, FOUND BY ON FLOOR IN A POOL OF BLOOD FROM HEAD LACERATION, HX OF RENAL CELL CARCINOMA, AAA, HTN CONSULT NOTE DR. NUNES 03-07-18: QUESTIONABLE UTI TREATMENTS: CONSULT NOTE DR. NUNES 03-07-18: HE REMAINS FRAIL WITH LIMITED MOBILITY, CONFUSED. HE WILL REQUIRE SNU REHAB TO REGAIN HIS STRENGTH. MAR: IVF, ROCEPHIN (This form is maintained as a part of the permanent medical record) 2014 [employer]. All Rights Reserved [email or web address] Office: [phone] [facility] CAMPUSShakila
[2018-03-07] MEDS: Aspirin 81 mg Enteric Coated Tablet PO SCH (20:31)
[2018-03-07] MEDS: Tamsulosin HCl 0.4 MG CAP PO SCH (20:31)
[2018-03-07] MEDS: Atorvastatin Calcium 10 MG TAB PO SCH (20:32)
[2018-03-07] MEDS: Zolpidem Tartrate 5 MG TAB PO SCH (20:49)
[2018-03-07] MEDS: diphenhydrAMINE 25 MG CAP PO PRN (21:16)
[2018-03-07 21:49] VITALS: TEMP 97.5
[2018-03-08] MEDS: Dextrose 5 %-0.45 % NaCl 1,000 ML IV SCH (04:21)
[2018-03-08 04:56] LABS: #Basophils 0.1 thou/uL (0.0-0.2); #Eosinphils 0.4 thou/uL (0.0-0.7); #Lymphocytes 0.8 thou/uL (1.20-3.40); #Monocytes 0.9 thou/uL (0.11-0.59); #Neutrophils 4.5 thou/uL (1.40-6.50); %Basophils 0.8 % (0.0-1.0); %Eosinophils 6.1 % (0.0-10.0); %Lymphocytes 11.6 % (21.0-51.0); %Monocytes 13.5 % (0.0-10.0); Hemoglobin 11.2 g/dL (14.0-18.0); Mean Corpuscular HGB CONC 33.1 g/dL (32.0-36.0); Mean Corpuscular Hemoglobin 28.7 pg (27.0-31.0); Mean Corpuscular Volume 86.7 fl (80.0-94.0); Platelet Count 289 thou/uL (130-400); RBC Distribution Width 13.1 % (11.5-14.5); Red Blood Cell (RBC) Count 3.89 mill/uL (4.70-6.10); White Blood Cell (WBC) Count 6.7 thou/uL (4.8-10.8)
[2018-03-08 05:06] LABS: Anion Gap 12 mmol/L (10-20); BUN (Urea Nitrogen) 13 mg/dL (8.4-25.7); Calc. Creatinine Clearance 39 mL/min (70-130); Calcium 8.6 mg/dL (7.8-10.44); Carbon Dioxide 23 mmol/L (23-31); Chloride 102 mmol/L (98-107); Estimated GFR-MDRD 48; Glucose 109 mg/dL (83-110); Potassium 3.3 mmol/L (3.5-5.1); Sodium 134 mmol/L (136-145)
--- NOTE | 2018-03-08 09:27 | PRG ---
INPATIENT GENITOURINARY PROGRESS NOTE DATE OF SERVICE: 03/08/2018 SUBJECTIVE: The patient is alert, at bedside. OBJECTIVE: VITAL SIGNS: Stable, afebrile. ABDOMEN: Soft, nontender, nondistended. GENITOURINARY: Spivey catheter draining clear yellow urine. LABORATORY DATA: Repeat urine culture demonstrated Enterococcus. White count 6 , hemoglobin 11, platelet 289. Creatinine 1.4. IMPRESSION AND PLAN: Mr. Rosales is an 87-year-old male with: 1. Deconditioned status, status post nephrectomy, radical; level 2 thrombectomy at [facility] 02/18/2018 with pathology consistent with renal cell carcinoma. 2. History of benign prostatic hypertrophy. 3. History of urethral stricture, bulbar. The patient with recurrent urinary retention on this admission, although UA is negative, urine culture demonstrates Enterococcus and Pseudomonas. He has no evidence of fever or leukocytosis. The patient has component of mental status changes, which may be multifactorial. Empiric antibiotic treatment for positive urine culture. He will continue his indwelling Spivey catheter until followup appointment with me 03/19/2018 at 1:15 for a voiding trial. The patient will go to inpatient rehab if approved today. Discussed with patient and the need for indwelling Spivey catheter to continue due to solitary kidney, persistent urinary retention with bacteriuria. Continue his BPH meds, Flomax and Avodart. Discussed with Dr. Cervantes, patient will continue his antibody etc. to follow-up with MTDD
--- NOTE | 2018-03-08 09:32 | PQF ---
DATE: 03-07-18 ATTN: DR. MANNY ARROYO Please exercise your independent, professional judgment in responding to the clarification form. Clinical indicators are provided on the bottom of this form for your review Please check appropriate box(s): [ ] UTI please specify if due to or related to (as applicable): [ ] Indwelling catheter [ ] Unable to determine etiology [ ] Contaminated urine specimen without UTI [ ] Other diagnosis [ ] Unable to determine In addition, please specify: Present on Admission (POA): [ ] Yes [ ] No [ ] Unable to determine For continuity of documentation, please document condition throughout progress notes and discharge summary. Thank You. CLINICAL INDICATORS - SIGNS / SYMPTOMS / LABS URINE: 03-04-18: URINE BLOOD:: TRACE H 03-06-18: URINE KETONES: 15 H URINE BLOOD: TRACE H UR LEUKOCYTE ESTERASE: SMALL H URINE WBC: 4-[address] MATOS 03-06-18: INITIAL URINALYSIS WAS UNREMARKABLE FOR BACTERIA, NEG UA; HOWEVER, URINE CULTURE DEMONSTRATES GREATER THAN 100,000 ENTEROCOCCUS AND PSEUDOMONAS. CONSULT DR. MATOS 03-07-18: QUESTIONABLE UTI PN DR. ARROYO 03-07-18: URINARY PYURIA RISK FACTORS: H&P: HE HAS HAD A STEWART IN PLACE SINCE HIS NEPHRECTOMY. TREATMENT: (DEC) IVF, ROCEPHIN (This form is maintained as a part of the permanent medical record) 2014 [employer] All Rights Reserved [email or web address] Office: [phone] [facility]
--- NOTE | 2018-03-08 09:34 | PQF ---
DATE: 03-07-18 ATTN: DR. MANNY ARROYO Please exercise your independent, professional judgment in responding to the clarification form. Clinical indicators are provided on the bottom of this form for your review Please check appropriate box(s): [ ] Encephalopathy: Type: [ ] Acute [ ] Subacute [ ] Chronic [ ] Transient Alteration of Awareness [ ] Other diagnosis [ ] Unable to determine In addition, please specify: Present on Admission (POA): [ ] Yes [ ] No [ ] Unable to determine For continuity of documentation, please document condition throughout progress notes and discharge summary. Thank You. CLINICAL INDICATORS - SIGNS / SYMPTOMS / LABS CONSULT NOTE DR. MATOS 03-07-18: HE HAS BEEN RESTLESS, AMBULATING WITH ASSIST, HOWEVER, LIMITED. RELATES THE PATIENT HAS BEEN CONFUSED. GIVEN HI MULTIPLE DRUG ALLERGIES, MAY REQUIRE ID CONSULT HIS MENTAL/CONFUSION, ETIOLOGY IS UNCLEAR. PN DR. ARROYO 03-07-18: HE IS ORIENTED X2. HE WAS NOT AWARE THAT HE WAS IN HOSPITAL. RISK FACTORS: H&P: FALL, FOUND BY ON FLOOR IN A POOL OF BLOOD FROM HEAD LACERATION, HX OF RENAL CELL CARCINOMA, AAA, HTN CONSULT NOTE DR. NUNES 03-07-18: QUESTIONABLE UTI TREATMENTS: CONSULT NOTE DR. NUNES 03-07-18: HE REMAINS FRAIL WITH LIMITED MOBILITY, CONFUSED. HE WILL REQUIRE SNU REHAB TO REGAIN HIS STRENGTH. MAR: IVF, ROCEPHIN (This form is maintained as a part of the permanent medical record) 2014 [employer], [employer]. All Rights Reserved [email or web address] Office: [phone] [facility]ENTERShakila
[2018-03-08] MEDS: Finasteride 5 MG TAB PO SCH (09:59)
[2018-03-08] MEDS: Docusate 100 MG CAP PO SCH (09:59)
[2018-03-08] MEDS: Hydrochlorothiazide 25 MG TAB PO SCH (09:59)
[2018-03-08] MEDS ORDERED: Triple Antibiotic Oint 1 GM Packet TOP PRN (11:03)
[2018-03-08 12:30] VITALS: BP 120/61
--- NOTE | 2018-03-08 16:28 | DIS ---
DATE OF ADMISSION: 03/04/2018 DATE OF DISCHARGE: 03/08/2018 DISCHARGE DIAGNOSES: 1. Pseudomonas/Enterococcus urinary tract infection, sensitive to Levaquin. 2. 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 3. Indwelling Spivey catheter to remain in place until seen by Dr. Calderon. 4. A 5 cm abdominal aortic aneurysm followed by Dr. Hever Muniz. 5. Hypertension. 6. Hyperlipidemia. 7. Benign prostatic hypertrophy. 8. Status post coronary artery bypass grafting in 2014. 9. Dementia/sundowning. 10. Acute on chronic kidney disease, stage 3. PLAN: 1. The patient to be discharged to [facility] for further therapy. 2. The patient will be initiated on Levaquin. We will observe for side effects prior to discharge. He is allergic to CIPRO, which causes nausea type reaction. However, the patient is allergic to man y antibiotics and I feel he will tolerate this. We will observe him after administering. DISCHARGE MEDICATIONS: Aspirin 81 mg daily, Lipitor 10 daily, clonidine 0.1 q.4 hours p.r.n. for toni vated blood pressure, Benadryl p.r.n., Colace 100 b.i.d., finasteride 5 mg p.o. daily, hydrochlorothi azide 25 daily, Levaquin 250 mg daily, Zofran p.r.n., Flomax 0.4 mg daily, tramadol 50 q.6 hours p.r. n. BRIEF HISTORY: This is an 87-year-old white male discovered in his kitchen by his at [facility] 7:30 in the morning, lying in a pool of his own blood from a head laceration. The patient does n ot remember getting out of bed. Evidently, he was going to get the newspaper and he fell and hit his head on the table. He does not complain of any memory issues. He is having no other symptoms. How ever, his brought him to the emergency room for further evaluation. HOSPITAL COURSE: The patient was admitted. He was found to be somewhat lightheaded and dizzy. Urin e culture obtained which did grow out positive for Pseudomonas and Enterococcus, both sensitive to Le vaquin. The patient during his hospital stay was given IV therapy as well as physical therapy. He i s quite weak. He will be transferred to the [facility], where he can receive additional physic al therapy as well as IV antibiotic treatment. He will be sent home on Levaquin 250 p.o. daily. He will follow up with Dr. Calderon. He still has an indwelling Spivey, which she will remove in the office. He will follow up with me shortly after being discharged from [facility]. Ot her labs include white count 6.7, hemoglobin and hematocrit 11 and 33, platelet of 289. Sodium 134, potassium 3.3, chloride 102, creatinine 1.40.
--- NOTE | 2018-03-09 16:42 | EKG ---
Test Reason : Blood Pressure : / mmHG Vent. Rate : 060 BPM Atrial Rate : 060 BPM P-R Int : 212 ms QRS Dur : 086 ms QT Int : 422 ms P-R-T Axes : 000 -27 -10 degrees QTc Int : 422 ms Sinus rhythm with 1st degree A-V block Septal infarct , age undetermined T wave abnormality, consider anterolateral ischemia Abnormal ECG Confirmed by SHELDON HICKS MD ([id number]), non linear editor JESUS GALLEGOS ([id number]) on 03/09/2018 4:42:38 PM Referred By: Confirmed By:SHELDON HICKS MD
== END 2018-03-08 13:39 | DRG 690 ==
LOC: ERS 07:54 → 2SW 10:30 → OBSVTOIN 03-06 15:09 → T4-B 03-06 18:31
PROVIDERS: ADMIT Family Medicine; ATTEND Family Medicine
DX: N39.0 Urinary tract infection, site not specified (principal); F05 Delirium due to known physiological condition; N17.9 Acute kidney failure, unspecified; S01.01XA Laceration without foreign body of scalp, initial encounter; E78.5 Hyperlipidemia, unspecified; Z95.1 Presence of aortocoronary bypass graft; S01.91XA Laceration without foreign body of unspecified part of head, initial encounter; B96.5 Pseudomonas (aeruginosa) (mallei) (pseudomallei) as the cause of diseases classified elsewhere; B95.2 Enterococcus as the cause of diseases classified elsewhere; Z90.5 Acquired absence of kidney; Z85.528 Personal history of other malignant neoplasm of kidney; I71.4 Abdominal aortic aneurysm, without rupture; F03.90 Unspecified dementia, unspecified severity, without behavioral disturbance, psychotic disturbance, mood disturbance, and anxiety; I12.9 Hypertensive chronic kidney disease with stage 1 through stage 4 chronic kidney disease, or unspecified chronic kidney disease; N18.3 Chronic kidney disease, stage 3 (moderate); Z95.0 Presence of cardiac pacemaker; N40.1 Benign prostatic hyperplasia with lower urinary tract symptoms; R33.8 Other retention of urine
CPT/HCPCS: 36415; 70450; 71045; 72125; 74176; 74230; 80048; 80053; 81003; 81015; 82553; 83880; 84484; 85025; 85610; 85730; 86850; 86900; 86901; 87077; 87086; 87186; 90471; 90715; 93005; 94760; 96360; 96361; G8978-GP-CJ; G8979-GP-CI; G8987-GO-CJ; G8988-GO-CI; G8996-GN-CK; G8996-GN-CL; G8996-GN-CM; G8997-GN-CJ; J0696; J2001; J2060; J7050

== ENCOUNTER → 2018-05-30 | Day surgery (SDC) | payer MEDICARE, BC ==
[2018-05-29 17:09] VITALS: BMI 23.7
[~2018-05-30] MED LIST changes: +Fentanyl 100 MCG/2 ML VIAL ONE; -Iopamidol 370 76% 100 ML VIAL ONE; +Iopamidol 370 76% 50 ML VIAL FS ONE; +Lidocaine 1% (PF) 30 ML VIAL ONE; +Midazolam HCl 2 mg/2 ml Vial ONE
[2018-05-30 07:24] LABS: #Eosinphils 0.2 thou/uL (0.0-0.7); #Lymphocytes 0.9 thou/uL (1.20-3.40); #Monocytes 0.4 thou/uL (0.11-0.59); #Neutrophils 3.7 thou/uL (1.40-6.50); %Basophils 0.6 % (0.0-1.0); %Eosinophils 2.9 % (0.0-10.0); %Lymphocytes 17.2 % (21.0-51.0); %Monocytes 8.5 % (0.0-10.0); %Neutrophils 70.8 % (42.0-75.0); Hemoglobin 12.7 g/dL (14.0-18.0); Mean Corpuscular HGB CONC 33.7 g/dL (32.0-36.0); Mean Corpuscular Hemoglobin 29.5 pg (27.0-31.0); Mean Corpuscular Volume 87.5 fL (78.0-98.0); Mean Platelet Volume 7.5 fL (7.4-10.4); Platelet Count 205 thou/uL (130-400); RBC Distribution Width 12.7 % (11.5-14.5); Red Blood Cell (RBC) Count 4.31 mill/uL (4.70-6.10); White Blood Cell (WBC) Count 5.2 thou/uL (4.8-10.8)
[2018-05-30 07:54] LABS: Anion Gap 14 mmol/L (10-20); BUN (Urea Nitrogen) 22 mg/dL (8.4-25.7); Calc. Creatinine Clearance 31 mL/min (70-130); Calcium 9.2 mg/dL (7.8-10.44); Carbon Dioxide 23 mmol/L (23-31); Chloride 107 mmol/L (98-107); Estimated GFR-MDRD 40; Glucose 97 mg/dL (83-110); Potassium 5.5 mmol/L (3.5-5.1); Sodium 138 mmol/L (136-145)
--- NOTE | 2018-05-30 10:17 | OP ---
DATE OF PROCEDURE: 05/30/2018 PREOPERATIVE DIAGNOSES: Abdominal aortic aneurysm and iliac aneurysm with internal iliac arteries in need of embolization and preparation for endovascular aneurysm repair. POSTOPERATIVE DIAGNOSES: Abdominal aortic aneurysm and iliac aneurysm with internal iliac arteries i n need of embolization and preparation for endovascular aneurysm repair. PROCEDURES: 1. Ultrasound-guided vascular access on the right common femoral artery. 2. Right common iliac artery angiogram. 3. Right internal iliac artery branch embolization x2 with a 6 x 20 interlocked coil x2 and 8 x 20 i nterlocked cool x2. SURGEON: Hever Muniz M.D. ANESTHESIA: 1% lidocaine for local/1 mg Versed and 25 mcg fentanyl for IV sedation, 1% lidocaine was used for local. TOTAL CONTRAST: 22 mL TOTAL FLUOROSCOPY TIME: 18.6 minutes. PROCEDURE IN DETAIL: After consent was obtained, the patient was brought to wetlands conservation laborer, placed in supi ne position on the wetlands conservation laborer table. Appropriate anesthetic monitor was placed. IV sedation was begun . Groins were prepped and draped in usual sterile fashion. Using ultrasound guidance, the right merlin in was anesthetized with 1% lidocaine over the common femoral artery. Micropuncture set was used to access common femoral artery. A micropuncture sheath was then placed and exchanged for a 5-Sammarinese sh eath. A 5-Sammarinese sheath was then used for hand injected arteriogram in multiple planes. The iliac a rtery was laid out to where we could see the orifice of the internal iliac artery branches. Using a rim catheter and 0.14 loose wire, the first of the branches was cannulated. A microcatheter was then placed over the loose wire. A rim catheter was removed. Hand injected arteriogram was performed wi th the catheter in the internal iliac artery secondary branch. This showed as an intraluminal locati on. Catheter was positioned appropriately and two 8 x 20 interlocked will deployed. The catheter wa s removed and a rim catheter was used to access the second branch of the iliac artery. This artery w as embolized in a similar fashion with a 6 x 20 interlock coils x2. The rim catheter was used to hermelinda e an angiogram from the common iliac artery showing good placement of the coils within the internal i liac branches. The femoral artery was closed with a ProGlide. Good hemostasis was obtained. The pa tient was transferred to the recovery area and will be kept for 2 hours and sent home. I will be brought back in electively for aneurysm repair.
== END ==
LOC: CCL 06:17
PROVIDERS: ATTEND Thoracic Surgery (Cardiothoracic Vascular Surgery)
PROC: 04LE3DZ Occlusion of Right Internal Iliac Artery with Intraluminal Device, Percutaneous Approach (ICD-10-PCS; principal; 2018-05-30)
DX: I72.3 Aneurysm of iliac artery (principal); I71.4 Abdominal aortic aneurysm, without rupture; I25.10 Atherosclerotic heart disease of native coronary artery without angina pectoris; I10 Essential (primary) hypertension; E78.2 Mixed hyperlipidemia; N40.0 Benign prostatic hyperplasia without lower urinary tract symptoms; Z85.528 Personal history of other malignant neoplasm of kidney; Z79.82 Long term (current) use of aspirin; Z79.899 Other long term (current) drug therapy; Z88.0 Allergy status to penicillin; Z88.1 Allergy status to other antibiotic agents; Z88.2 Allergy status to sulfonamides; Z88.8 Allergy status to other drugs, medicaments and biological substances; Z90.5 Acquired absence of kidney
CPT/HCPCS: 36140; 37242; 76942; 80048; 85025; C1760; C1769 ×2; 99152; 99153; J1644; J2001; J2250; J3010

== ENCOUNTER 2018-06-04 13:23 | Outpatient (CLI) | payer MEDICARE, BC ==
[2018-06-04 14:22] LABS: Hemoglobin 12.4 g/dL (14.0-18.0); Mean Corpuscular HGB CONC 33.9 g/dL (32.0-36.0); Mean Corpuscular Hemoglobin 29.7 pg (27.0-31.0); Mean Corpuscular Volume 87.7 fL (78.0-98.0); Mean Platelet Volume 7.1 fL (7.4-10.4); Platelet Count 222 thou/uL (130-400); RBC Distribution Width 12.4 % (11.5-14.5); Red Blood Cell (RBC) Count 4.18 mill/uL (4.70-6.10); White Blood Cell (WBC) Count 5.7 thou/uL (4.8-10.8)
[2018-06-04 14:41] LABS: Anion Gap 12 mmol/L (10-20); BUN (Urea Nitrogen) 22 mg/dL (8.4-25.7); Calc. Creatinine Clearance 0 mL/min (70-130); Calcium 9.2 mg/dL (7.8-10.44); Carbon Dioxide 27 mmol/L (23-31); Chloride 104 mmol/L (98-107); Estimated GFR-MDRD 41; Glucose 123 mg/dL (83-110); Potassium 4.7 mmol/L (3.5-5.1); Sodium 138 mmol/L (136-145)
--- NOTE | 2018-06-05 12:08 | EKG ---
Test Reason : Blood Pressure : / mmHG Vent. Rate : 052 BPM Atrial Rate : 052 BPM P-R Int : 216 ms QRS Dur : 104 ms QT Int : 412 ms P-R-T Axes : 004 -18 037 degrees QTc Int : 383 ms Sinus bradycardia with 1st degree A-V block Anteroseptal infarct (cited on or before 02-DEC-2017)/Poor R wave progression. Abnormal ECG When compared with ECG of 04-MAR-2018 08:08, Nonspecific T wave abnormality, improved in Inferior leads T wave inversion no longer evident in Anterolateral leads Confirmed by RENZO STYLES ([id number]) on 06/05/2018 12:07:41 PM Referred By: VANNESSA Confirmed By:RNEZO STYLES
== END 2018-06-04 13:24 | disposition home or self-care (01) ==
LOC: LABBT 13:23
PROVIDERS: ATTEND Thoracic Surgery (Cardiothoracic Vascular Surgery)
DX: Z01.818 Encounter for other preprocedural examination (principal); I71.4 Abdominal aortic aneurysm, without rupture
CPT/HCPCS: 80048; 85027; 86850; 86900; 86901; 93005; 93010

== ENCOUNTER 2018-06-05 05:42 | Inpatient (IN) | payer MEDICARE, BC ==
[2018-06-05] MEDS ORDERED: Clindamycin/D5W 900 mg/50 ml Premix Bag ONE (06:13)
[2018-06-05] MEDS ORDERED: Vancomycin HCl 1.5 GM in Sodium Chloride 0.9% 250 ML 300 ML IVPB SCH (06:15)
[2018-06-05] MEDS ORDERED: Protamine Sulfate 50 MG/5 ML VIAL ONE ×2 (06:28→09:46)
[2018-06-05] MEDS ORDERED: Heparin 10,000 UNITS/1 ML VIAL ONE (06:28)
[2018-06-05] MEDS ORDERED: Fentanyl 100 MCG/2 ML VIAL ONE (06:54)
[2018-06-05] MEDS ORDERED: Norepinephrine 4 MG/4 ML VIAL ONE (06:55)
[2018-06-05] MEDS ORDERED: Phenylephrine HCL 10 MG/ML VIAL ONE (06:55)
--- NOTE | 2018-06-05 10:33 | OP ---
DATE OF PROCEDURE: 06/05/2018 PREOPERATIVE DIAGNOSIS: Abdominal aortic aneurysm. POSTOPERATIVE DIAGNOSIS: Abdominal aortic aneurysm. PROCEDURES: 1. Ultrasound guided bilateral common femoral artery access with preclose ProGlide placement. 2. Abdominal aortogram. 3. Right external iliac artery angiogram. 4. EVAR with: 1) 25 x 16 x 145 main body right Endurant II; 2) 16 x 13 right iliac extension Endura nt II; 3) 16 x 24 flared iliac extension Endurant II. CONTRAST: 75 mL. TOTAL FLUORO TIME: 14 minutes 16 seconds. SURGEON: Dr. Hever Muniz and Dr. Roni Mccall ANESTHESIA: General endotracheal, Evelyne Herrera CRNA. ESTIMATED BLOOD LOSS: Minimal. PROCEDURE IN DETAIL: After consent was obtained the patient was brought to the operating room and pl aced in the supine position on the operating room table. Appropriate anesthetic monitor was placed a nd general endotracheal anesthesia induced. Abdomen and legs were prepped and draped in usual steril e fashion. Ultrasound guidance was used to percutaneously access common femoral arteries bilaterally and place 5-Ghanaian sheaths. Crossed ProGlides were then placed bilaterally and secured. The patient was given 10,000 units of heparin. The 5 Ghanaian sheath on the left was exchanged for a 1 2-Ghanaian sheath which was positioned in the aneurysm sac. Lunderquist wire was then placed through t he right femoral sheath. Abdominal aortogram was performed delineating the right renal artery and lepe perior mesenteric artery. Graft was then selected and prepared for deployment. The right sheath was removed and the main body was passed over the Lunderquist wire on the right and positioned at its pr oximal anastomotic site. The graft was then deployed. The left iliac extension was then cannulated and the pigtail catheter passed into the main body of the graft and twirled. Lunderquist wire was re placed. Hand injected arteriogram performed to the left sheath. A 16 x 24 extension was selected an d deployed. Right iliac artery was delineated with a hand injected right iliac angiogram. A 16 x 13 extension was selected and deployed. Full length the graft was ballooned with Reliant balloons. Ab dominal aortogram was again performed. This was a type 2 endoleak within the abdominal component, th e aneurysm and the right iliac component. There was no evidence of type 1 or type 3 endoleaks. The sheaths were removed over rimidi guidewires and the ProGlides secured. There was good hemostasis. Bentson wires were removed and ProGlides cut. Manual pressure was held while Protamine was administe red. There was good hemostasis. The patient was awakened, extubated, and transferred to the recover y room in stable condition. Needle, sponge, and instrument counts were all reported correct at the e nd of the procedure. The patient had palpable femoral pulses at completion.
[2018-06-05] MEDS ORDERED: HYDROcodone/Acetaminophen 5/325 mg Tablet PO PRN ×2 (11:03)
[2018-06-05] MEDS ORDERED: Phenylephrine 10 MG/NS 250 ML 250 ML IVPB PRN (11:03)
[2018-06-05] MEDS ORDERED: Fentanyl 100 MCG/2 ML VIAL SLOW IVP PRN (11:03)
[2018-06-05] MEDS ORDERED: Ondansetron HCl/PF 4 MG/2 ML Vial IVP PRN (11:03)
[2018-06-05] MEDS ORDERED: hydrALAZINE 20 MG/ML VIAL SLOW IVP PRN (11:03)
[2018-06-05] MEDS ORDERED: Acetaminophen 325 MG TAB PO PRN (11:03)
[2018-06-05] MEDS ORDERED: Promethazine HCl 25 MG/ML VIAL IM PRN (11:03)
[2018-06-05] MEDS: Sodium Chloride 0.9% 1,000 ML IV SCH ×2 (11:50→21:41)
[2018-06-05 12:28] VITALS: BMI 24.5
[2018-06-05] MEDS: Fluticasone Propionate Nasal Spray 16 gm Bottle NASAL PRN ×2 (13:35→22:48)
[2018-06-05] MEDS ORDERED: Heparin 10,000 UNITS/ 10 ML VIAL ONE (15:01)
[2018-06-05] MEDS ORDERED: PHENYLEPHRINE-NS 100 MCG/ML 10 ML SYRINGE ONE (15:01)
[2018-06-05] MEDS ORDERED: PROPOFOL 200 MG/20 ML VIAL ONE (15:01)
[2018-06-05] MEDS ORDERED: Glycopyrrolate 0.2 MG/ML 5 ML SYRINGE ONE (15:01)
[2018-06-05] MEDS ORDERED: Dexamethasone 20 MG/5 ML VIAL ONE (15:01)
[2018-06-05] MEDS ORDERED: Ondansetron HCl/PF 4 MG/2 ML Vial ONE (15:01)
[2018-06-05] MEDS ORDERED: Lidocaine 1% PF 5 ML VIAL ONE (15:01)
[2018-06-05] MEDS: Vancomycin HCl 1 GM in Premix Bag 1 BAG IVPB SCH (17:52)
[2018-06-05] MEDS: Atorvastatin Calcium 10 MG TAB PO SCH (20:33)
[2018-06-05] MEDS: Aspirin 81 mg Enteric Coated Tablet PO SCH (20:33)
[2018-06-05] MEDS: Polyethylene Glycol 3350 17 GM Packet PO SCH (20:34)
[2018-06-05] MEDS: Docusate 100 MG CAP PO SCH (20:34)
[2018-06-06 03:47] LABS: #Eosinphils 0.1 thou/uL (0.0-0.7); #Lymphocytes 0.9 thou/uL (1.20-3.40); #Monocytes 0.9 thou/uL (0.11-0.59); %Basophils 0.5 % (0.0-1.0); %Lymphocytes 9.7 % (21.0-51.0); %Neutrophils 78.8 % (42.0-75.0); Hemoglobin 10.1 g/dL (14.0-18.0); Mean Corpuscular HGB CONC 34.1 g/dL (32.0-36.0); Mean Corpuscular Hemoglobin 29.8 pg (27.0-31.0); Mean Corpuscular Volume 87.6 fL (78.0-98.0); Mean Platelet Volume 7.4 fL (7.4-10.4); Platelet Count 158 thou/uL (130-400); RBC Distribution Width 12.3 % (11.5-14.5); Red Blood Cell (RBC) Count 3.38 mill/uL (4.70-6.10); White Blood Cell (WBC) Count 8.9 thou/uL (4.8-10.8)
[2018-06-06 04:04] LABS: Anion Gap 10 mmol/L (10-20); BUN (Urea Nitrogen) 24 mg/dL (8.4-25.7); Calc. Creatinine Clearance 34 mL/min (70-130); Calcium 8.7 mg/dL (7.8-10.44); Carbon Dioxide 25 mmol/L (23-31); Chloride 104 mmol/L (98-107); Estimated GFR-MDRD 43; Glucose 83 mg/dL (83-110); Potassium 4.2 mmol/L (3.5-5.1); Sodium 135 mmol/L (136-145)
[2018-06-06] MEDS: Vancomycin HCl 1 GM in Premix Bag 1 BAG IVPB SCH (05:20)
[2018-06-06] MEDS ORDERED: ALPRAZolam 0.25 MG TAB PO SCH (05:45)
--- NOTE | 2018-06-06 07:13 | DIS ---
DATE OF ADMISSION: 06/05/2018 DATE OF DISCHARGE: 06/07/2018 DIAGNOSES: Abdominal aortic aneurysm. PROCEDURES: Endovascular repair of abdominal aortic aneurysm. DESCRIPTION OF HOSPITAL STAY: Mr. Rosales is an 88-year-old gentleman who underwent endovascular repair of abdominal aortic aneurysm. He had weakness of both legs post operatively, with an embolized right internal iliac artery and the left was partially covered. Neurology felt that this may be due to cord ischemia. Steroids were started. He is being transferred to rehab. DISCHARGE MEDICATIONS: Unchanged. MTDD
[2018-06-06] MEDS: Sodium Chloride 0.9% 1,000 ML IV SCH ×2 (08:24→13:00)
[2018-06-06] MEDS: Finasteride 5 MG TAB PO SCH (08:36)
[2018-06-06] MEDS: Tamsulosin HCl 0.4 MG CAP PO SCH (08:36)
[2018-06-06] MEDS: Docusate 100 MG CAP PO SCH ×2 (08:37→20:40)
[2018-06-06] MEDS ORDERED: Prevnar 13-Val Conj/PF 0.5 ML SYRINGE IM ONE (09:00)
--- NOTE | 2018-06-06 20:22 | CON ---
DATE OF CONSULTATION: 06/06/2018 CONSULTING PHYSICIAN: Hever Muniz M.D. IMPRESSION: 1. Abrupt onset of partial quadriplegia, suggesting the possibility of either a cord compression or infarct. 2. Recent history of renal cell carcinoma. 3. Peripheral vascular disease. PLAN: MRI of the cervical and thoracic cord. Mr. Rosales is an 88-year-old gentleman who was brought into the hospital for treatment of aortic an eurysm. He had an endovascular procedure done. He was brought back to the ICU for monitoring. He i s feeling well although he has developed a new onset of numbness in both of his legs extending up to the knee level. He has not noticed any numbness in his hands. When they attempted to get him up to getting ready today for discharge, he was unable to walk as well as he did when he came in. He actua lly fell to the floor on one occasion. He is without any complaints of spinal pain. He has not repo rted any double vision, slurred speech, headache, nausea, vomiting, vertigo or alteration of vision. PAST MEDICAL HISTORY: As listed above. ALLERGIES: ZYRTEC, CIPRO, FIORELLA, AMPICILLIN. SOCIAL HISTORY: . No tobacco or alcohol use. FAMILY HISTORY: Noncontributory. REVIEW OF SYSTEMS: Otherwise, negative. PHYSICAL EXAMINATION: VITAL SIGNS: Blood pressure 112/46, pulse 52, respirations 15, saturations 92%. HEENT: Pupils equal and reactive. Conjunctivae are clear. Oropharynx clear. NECK: Supple, no lymphadenopathy. EXTREMITIES: No cyanosis, clubbing or edema. NEUROLOGIC: He is alert and cooperative. His speech is fluent and clear. Cranial nerves II-XII are intact. Motor exam showed symmetric weakness in both upper extremities involving the deltoid, bicep s, and triceps. His distal strength seemed to be intact. Lower extremity testing showed 3/5 strengt h for hip flexion and knee extension, ankle flexion was a bit asymmetric but in the 3/5 range as well . Plantar responses were mute. Reflexes were absent in both legs. Sensation was subjectively decre ased to light touch in both legs in a stocking distribution. He has been able to control his bowel a nd bladder. SUMMARY: This is an elderly gentleman with abrupt onset of weakness, which seems to be in conjunctio n with some stocking distribution numbness in his legs suggesting central lesion. Proceed with imagi ng and try to rule out a compressive lesion related to his kidney cancer.
[2018-06-06] MEDS: Aspirin 81 mg Enteric Coated Tablet PO SCH (20:40)
[2018-06-06] MEDS: Polyethylene Glycol 3350 17 GM Packet PO SCH (20:40)
[2018-06-06] MEDS: Dexamethasone 4 MG TAB PO SCH (20:40)
[2018-06-06] MEDS: Atorvastatin Calcium 10 MG TAB PO SCH (20:49)
[2018-06-07] MEDS: Sodium Chloride 0.9% 1,000 ML IV SCH (06:44)
[2018-06-07] MEDS: Tamsulosin HCl 0.4 MG CAP PO SCH (08:58)
[2018-06-07] MEDS: Docusate 100 MG CAP PO SCH (08:59)
[2018-06-07] MEDS: Dexamethasone 4 MG TAB PO SCH ×2 (08:59→19:55)
[2018-06-07] MEDS: Finasteride 5 MG TAB PO SCH (08:59)
[2018-06-07 16:33] VITALS: BP 158/74; TEMP 98.3
[2018-06-07] MEDS: Atorvastatin Calcium 10 MG TAB PO SCH (19:55)
[2018-06-07] MEDS: Aspirin 81 mg Enteric Coated Tablet PO SCH (19:56)
== END 2018-06-07 20:34 | DRG 268 ==
LOC: SDC 05:42 → CCU 09:43 → 2NO 06-07 09:18
PROVIDERS: ADMIT Thoracic Surgery (Cardiothoracic Vascular Surgery); ATTEND Thoracic Surgery (Cardiothoracic Vascular Surgery)
PROC: 04V03DZ Restriction of Abdominal Aorta with Intraluminal Device, Percutaneous Approach (ICD-10-PCS; principal; 2018-06-05)
PROC: B4101ZZ Fluoroscopy of Abdominal Aorta using Low Osmolar Contrast (ICD-10-PCS; 2018-06-05)
PROC: B41J1ZZ Fluoroscopy of Other Lower Arteries using Low Osmolar Contrast (ICD-10-PCS; 2018-06-05)
DX: I71.4 Abdominal aortic aneurysm, without rupture (principal); G82.50 Quadriplegia, unspecified; C64.2 Malignant neoplasm of left kidney, except renal pelvis; I73.9 Peripheral vascular disease, unspecified; Z79.82 Long term (current) use of aspirin; I25.10 Atherosclerotic heart disease of native coronary artery without angina pectoris; I10 Essential (primary) hypertension; E78.5 Hyperlipidemia, unspecified; N40.0 Benign prostatic hyperplasia without lower urinary tract symptoms
CPT/HCPCS: 36415; 76001; 80048; 82550; 85025; 85027; 86850; 86900; 86901; 93005; 93010; C1726; C1760; C1762; C1769; C1894; G8978-GP-CJ; G8978-GP-CM; G8979-GP-CI; G8987-GO-CK; G8988-GO-CI; J0360; J1100; J1642; J1644; J2001; J2370; J2405; J2704; J2720; J3010; J3370; J3490; J7050; J8540

== ENCOUNTER 2018-06-26 11:33 | Emergency (ER) | payer MEDICARE, BC ==
[2018-06-26 12:34] LABS: #Eosinphils 0.1 thou/uL (0.0-0.7); #Lymphocytes 0.7 thou/uL (1.20-3.40); #Monocytes 0.5 thou/uL (0.11-0.59); #Neutrophils 6.3 thou/uL (1.40-6.50); %Basophils 0.1 % (0.0-1.0); %Eosinophils 1.2 % (0.0-10.0); %Lymphocytes 9.3 % (21.0-51.0); %Monocytes 6.2 % (0.0-10.0); %Neutrophils 83.2 % (42.0-75.0); Hemoglobin 11.5 g/dL (14.0-18.0); Mean Corpuscular HGB CONC 32.8 g/dL (32.0-36.0); Mean Corpuscular Hemoglobin 29.3 pg (27.0-31.0); Mean Corpuscular Volume 89.3 fL (78.0-98.0); Mean Platelet Volume 7.3 fL (7.4-10.4); Platelet Count 213 thou/uL (130-400); RBC Distribution Width 12.8 % (11.5-14.5); Red Blood Cell (RBC) Count 3.93 mill/uL (4.70-6.10); White Blood Cell (WBC) Count 7.5 thou/uL (4.8-10.8)
[2018-06-26 12:50] LABS: ALT (SGPT) 18 U/L (8-55); AST (SGOT) 19 U/L (5-34); Albumin 3.4 g/dL (3.4-4.8); Alkaline Phosphatase 82 U/L (40-150); Anion Gap 14 mmol/L (10-20); BUN (Urea Nitrogen) 29 mg/dL (8.4-25.7); Bilirubin, Total 0.6 mg/dL (0.2-1.2); Calc. Creatinine Clearance 0 mL/min (70-130); Calcium 8.9 mg/dL (7.8-10.44); Carbon Dioxide 23 mmol/L (23-31); Chloride 105 mmol/L (98-107); Estimated GFR-MDRD 33; Globulin 2.9 g/dL (2.4-3.5); Glucose 131 mg/dL (83-110); Potassium 5.1 mmol/L (3.5-5.1); Protein, Total 6.3 g/dL (5.8-8.1); Sodium 137 mmol/L (136-145)
[2018-06-26 12:57] LABS: CKMB 2.3 ng/mL (0-6.6); Troponin I Less than 0.010 ng/mL (< 0.028)
--- NOTE | 2018-06-26 13:11 | RAD ---
CHEST ONE VIEW: HISTORY: Palpitations. Dizziness. COMPARISON: 03/04/2018 FINDINGS: The cardiac silhouette is magnified by projection. The pulmonary vasculature is at the upper limits of normal. The mediastinum is midline with aortic calcification and postoperative changes. No lobar consolidation or evidence of pneumothorax. Old left rib fractures are apparent. IMPRESSION: 1. Borderline pulmonary vascular congestion. 2. Atherosclerosis. POS: [facility]
--- NOTE | 2018-06-26 13:33 | CT ---
BRAIN CT WITHOUT IV CONTRAST: History: 88-year-old male with history of left lower extremity weakness. History of hypertension, syncope, and dizziness. Comparison: 03-04-18 FINDINGS: Major branch intracranial vascular calcifications involving the vertebral basilar artery and carotid arteries. There is atrophy and chronic white matter ischemic change. No focal mass or midline shift. No intra or extraaxial hemorrhage. Sinuses and mastoids are clear. No focal mass or midline shift. No intra or extraaxial hemorrhage. Sinuses and mastoids are clear of acute process. IMPRESSION: Atrophy and chronic white matter ischemic change. No mass or bleed or other acute process. Stable fro m prior study. POS: [facility]
--- NOTE | 2018-06-29 21:56 | EKG ---
Test Reason : PALP/DIZZY Blood Pressure : / mmHG Vent. Rate : 064 BPM Atrial Rate : 064 BPM P-R Int : 222 ms QRS Dur : 096 ms QT Int : 402 ms P-R-T Axes : 000 -22 027 degrees QTc Int : 414 ms Sinus rhythm with 1st degree A-V block with Premature supraventricular complexes Septal infarct , age undetermined No STEMI Abnormal ECG Confirmed by CHEYENNE Graham, CHELSEY ([id number]), school photograph editor KIM CANDELARIA ([id number]) on 06/29/2018 9:56:06 PM Referred By: Confirmed By:CHELSEY QUINN M.D.
== END 2018-06-26 15:09 | disposition home or self-care (01) ==
LOC: ERS 11:33
DX: N17.9 Acute kidney failure, unspecified (principal); R53.1 Weakness; E78.5 Hyperlipidemia, unspecified; I10 Essential (primary) hypertension; Z85.528 Personal history of other malignant neoplasm of kidney; Z86.79 Personal history of other diseases of the circulatory system
CPT/HCPCS: 36415; 70450; 71045; 80053; 82553; 84484; 85025; 93005; 96360

== ENCOUNTER 2018-09-09 12:12 | Outpatient (CLI) | payer MEDICARE, BC ==
[~2018-09-09 12:12] MED LIST changes: -Fentanyl 100 MCG/2 ML VIAL ONE; +Iopamidol 370 76% 100 ML VIAL ONE; -Iopamidol 370 76% 50 ML VIAL FS ONE; -Lidocaine 1% (PF) 30 ML VIAL ONE; -Midazolam HCl 2 mg/2 ml Vial ONE
--- NOTE | 2018-09-09 17:12 | CT ---
CTA ABDOMEN WITH 3D VOLUME RENDERING WITH CONTRAST CTA PELVIS WITH 3D VOLUME RENDERING WITH CONTRAST: Date: 09/09/18 CLINICAL HISTORY: Abdominal aortic aneurysm. COMPARISON: 03/04/18. FINDINGS: Again seen, there is an aortic aneurysm with extension into the iliac arteries. Infrarenal aneurysmal sac was previously measured in an AP dimension of 4.9 cm, and in a current position, this measures a pproximately 5.0 cm. Prior 3.0 cm diameter of aneurysmal right common iliac artery, in an AP diameter , now measures approximately 3.1 cm, and previous 2.7 cm aneurysmal dilatation of left common iliac a rtery now measures approximately 2.8 cm. There is no definite endoleak visualized. A subtle degree of increased density adjacent to the endograft on precontrast imaging may relate to either streak artif act or a component of thrombus within the excluded aneurysmal sac. Multifocal exophytic cysts of the right kidney are again seen. Left kidney is absent. Patchy parenchy mal densities at each lung base may relate to pneumonitis, atelectasis, or scar. IMPRESSION: Aortobiiliac endograft is in place. No discrete endoleak is seen. The excluded aneurysmal sac is uli sly stable to 03/04/18. POS: [facility]
== END 2018-09-09 12:13 | disposition home or self-care (01) ==
LOC: BICCT 12:12
PROVIDERS: ATTEND Thoracic Surgery (Cardiothoracic Vascular Surgery)
DX: I71.4 Abdominal aortic aneurysm, without rupture (principal)
CPT/HCPCS: 74175; 82565

== ENCOUNTER 2018-09-23 09:37 | Emergency (ER) | payer MEDICARE, BC ==
[2018-09-23 09:56] LABS: #Eosinphils 0.1 thou/uL (0.0-0.7); #Lymphocytes 1.1 thou/uL (1.20-3.40); #Monocytes 0.5 thou/uL (0.11-0.59); #Neutrophils 3.7 thou/uL (1.40-6.50); %Basophils 0.5 % (0.0-1.0); %Eosinophils 2.4 % (0.0-10.0); %Lymphocytes 20.1 % (21.0-51.0); %Monocytes 9.2 % (0.0-10.0); %Neutrophils 67.9 % (42.0-75.0); Hemoglobin 12.9 g/dL (14.0-18.0); Mean Corpuscular HGB CONC 32.5 g/dL (32.0-36.0); Mean Corpuscular Hemoglobin 28.4 pg (27.0-31.0); Mean Corpuscular Volume 87.6 fL (78.0-98.0); Mean Platelet Volume 7.4 fL (7.4-10.4); Platelet Count 213 thou/uL (130-400); RBC Distribution Width 12.3 % (11.5-14.5); Red Blood Cell (RBC) Count 4.52 mill/uL (4.70-6.10); White Blood Cell (WBC) Count 5.5 thou/uL (4.8-10.8)
[2018-09-23 10:16] LABS: ALT (SGPT) 14 U/L (8-55); AST (SGOT) 19 U/L (5-34); Albumin 4.1 g/dL (3.4-4.8); Alkaline Phosphatase 85 U/L (40-150); Anion Gap 12 mmol/L (10-20); BUN (Urea Nitrogen) 27 mg/dL (8.4-25.7); Bilirubin, Total 0.9 mg/dL (0.2-1.2); CK (CPK) 90 U/L (30-200); Calc. Creatinine Clearance 0 mL/min (70-130); Calcium 9.2 mg/dL (7.8-10.44); Carbon Dioxide 24 mmol/L (23-31); Chloride 105 mmol/L (98-107); Estimated GFR-MDRD 38; Globulin 3.2 g/dL (2.4-3.5); Glucose 86 mg/dL (83-110); Lipase 59 U/L (8-78); Potassium 4.9 mmol/L (3.5-5.1); Protein, Total 7.3 g/dL (5.8-8.1); Sodium 136 mmol/L (136-145)
[2018-09-23 10:20] LABS: CKMB 3.5 ng/mL (0-6.6); Troponin I Less than 0.010 ng/mL (< 0.028)
--- NOTE | 2018-09-23 10:30 | RAD ---
SINGLE VIEW OF THE CHEST: Comparison: 06-26-18 History: Palpitations and chest pain. FINDINGS: Single view of the chest shows a normal size sized cardiomediastinal silhouette with atherosclerotic calcifications in the aorta. Patient is status post sternotomy. There is no evidence of consolidation , mass, or pleural effusions. There are multiple remote left rib fractures. IMPRESSION: No evidence of acute cardiopulmonary disease. POS: [facility]
== END 2018-09-23 11:17 | disposition home or self-care (01) ==
LOC: ERS 09:37
DX: R00.2 Palpitations (principal); E78.5 Hyperlipidemia, unspecified; Z79.899 Other long term (current) drug therapy; Z79.82 Long term (current) use of aspirin
CPT/HCPCS: 36415; 71045; 80053; 82553; 83690; 84484; 85025; 93005; 94760

== ENCOUNTER 2018-11-08 10:15 | Emergency (ER) | payer MEDICARE, BC | END 2018-11-08 14:49 | disposition home or self-care (01) | LOC: ERS 10:15 | DX: R00.2 Palpitations (principal); E78.5 Hyperlipidemia, unspecified; I10 Essential (primary) hypertension; F17.220 Nicotine dependence, chewing tobacco, uncomplicated; Z79.899 Other long term (current) drug therapy; Z79.82 Long term (current) use of aspirin | CPT/HCPCS: 93005 ==

== ENCOUNTER 2018-11-12 07:38 | Inpatient (IN) | payer MEDICARE, BC ==
[2018-11-12 08:36] LABS: #Eosinphils 0.1 thou/uL (0.0-0.7); #Lymphocytes 0.7 thou/uL (1.20-3.40); #Monocytes 0.4 thou/uL (0.11-0.59); #Neutrophils 4.2 thou/uL (1.40-6.50); %Basophils 0.7 % (0.0-1.0); %Eosinophils 1.6 % (0.0-10.0); %Lymphocytes 12.8 % (21.0-51.0); %Monocytes 7.2 % (0.0-10.0); %Neutrophils 77.7 % (42.0-75.0); Hemoglobin 12.9 g/dL (14.0-18.0); Mean Corpuscular HGB CONC 30.9 g/dL (32.0-36.0); Mean Corpuscular Hemoglobin 28.5 pg (27.0-31.0); Mean Corpuscular Volume 92.4 fL (78.0-98.0); Mean Platelet Volume 7.7 fL (7.4-10.4); Platelet Count 202 thou/uL (130-400); RBC Distribution Width 13.1 % (11.5-14.5); Red Blood Cell (RBC) Count 4.52 mill/uL (4.70-6.10); White Blood Cell (WBC) Count 5.5 thou/uL (4.8-10.8)
[2018-11-12 08:54] LABS: ALT (SGPT) 14 U/L (8-55); AST (SGOT) 17 U/L (5-34); Alkaline Phosphatase 92 U/L (40-150); Anion Gap 12 mmol/L (10-20); BUN (Urea Nitrogen) 28 mg/dL (8.4-25.7); Bilirubin, Total 0.9 mg/dL (0.2-1.2); Calc. Creatinine Clearance 0 mL/min (70-130); Calcium 9.3 mg/dL (7.8-10.44); Carbon Dioxide 26 mmol/L (23-31); Chloride 104 mmol/L (98-107); Estimated GFR-MDRD 38; Globulin 3.1 g/dL (2.4-3.5); Glucose 149 mg/dL (83-110); Potassium 4.2 mmol/L (3.5-5.1); Protein, Total 7.1 g/dL (5.8-8.1); Sodium 138 mmol/L (136-145)
--- NOTE | 2018-11-12 09:27 | RAD ---
FRONTAL VIEW CHEST: COMPARISON: 09/23/2018. INDICATION: Emergency exam, weakness. FINDINGS: There are redemonstrated remote left rib deformities. There is a subtle nodular density at the right lower lung zone partially obscured by overlying lead, limited in evaluation. Cardiomediastinal silh ouette is stable. No free air is seen beneath the hemidiaphragms. IMPRESSION: Subtle nodular density at the lower right lung zone, partially obscured by overlying lead. This find ing could reflect superimposition of intrathoracic structures, although the possibility of underlying nodularity is not excluded. Recommend a followup 2-view chest with removal of overlying artifacts f or confirmation. CODE T
[2018-11-12 13:24] LABS: Troponin I 0.017 ng/mL (< 0.028)
[2018-11-12 16:11] LABS: Troponin I Less than 0.010 ng/mL (< 0.028)
[2018-11-12] MEDS ORDERED: Ondansetron ODT 4 MG TAB SL PRN (19:20)
[2018-11-12] MEDS ORDERED: Ondansetron PF 4 MG/2 ML Vial IVP PRN ×2 (19:20→20:01)
[2018-11-12] MEDS ORDERED: Acetaminophen 325 MG TAB PO PRN (19:20)
[2018-11-12] MEDS ORDERED: Bisacodyl 5 MG TAB PO PRN (20:01)
[2018-11-12] MEDS ORDERED: Acetaminophen 500 MG TAB PO PRN (20:01)
[2018-11-12] MEDS ORDERED: Ondansetron ODT 4 MG TAB PO PRN (20:01)
[2018-11-12 20:03] VITALS: BMI 23.3
[2018-11-12 20:04] LABS: Troponin I 0.012 ng/mL (< 0.028)
[2018-11-12] MEDS: Tamsulosin HCl 0.4 MG CAP PO SCH (21:06)
[2018-11-12] MEDS: Aspirin 81 mg Enteric Coated Tablet PO SCH (21:07)
[2018-11-12] MEDS: Atorvastatin Calcium 10 MG TAB PO SCH (21:07)
[2018-11-12] MEDS: Docusate 100 MG CAP PO SCH (21:07)
--- NOTE | 2018-11-12 21:49 | CON ---
DATE OF CONSULTATION: 11/12/2018 REFERRING PHYSICIAN: Dr. Stanton. REASON FOR CONSULTATION: SVT, bradycardia. HISTORY OF PRESENT ILLNESS: Mr. Rosales is a pleasant 88-year-old gentleman with past medical history of coronary artery disease with prior bypass grafting, as well as valvular heart disease with mitral regurgitation, aortic regurgitation, PVCs, sinus node dysfunction, SVT, and hyperlipidemia, who is followed in our clinic for arrhythmia issues. He had been having some episodes of palpitations and underwent monitoring for this. He did have episodes of tachyarrhythmias that he was asymptomatic with, possibly an atypical atrial flutter. The P waves are difficult to distinguish and possibly SVT as well. Mr. Rosales was scheduled for an outpatient followup with us in clinic today after being evaluated in the emergency room a few days prior. He had been having heart racing with associated dizziness prompting him to go to the emergency room for evaluation. He was sent home and followup appointment was made, but unfortunately had a similar episode this morning, prompting him to present to the emergency room once again. Upon presentation, he was found to be slightly bradycardic, but otherwise stable by exam and also has stable vital signs. He has not had any true syncopal episodes, but between his tachyarrhythmias and his bradycardia, he is symptomatic. Currently, he denies any heart racing, palpitations, chest pain, pressure, syncope, near syncope, stroke, or stroke-like symptoms. He does endorse a heart racing and associated dizziness. Otherwise, a 12-point review of systems is conducted and is negative. REVIEW OF SYSTEMS: As per HPI. PAST MEDICAL HISTORY: 1. Coronary artery disease status post coronary artery bypass graft. 2. 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 3. Left nephrectomy for renal cancer. 4. Endovascular abdominal aortic aneurysm repair. 5. Atrial flutter ablation after coronary artery bypass grafting. 6. Hypertension. 7. Hyperlipidemia. ALLERGIES: SULFA, AMPICILLIN, SUDAFED, AND GUAIFENESIN. HOME MEDICATIONS: Include: 1. Aspirin. 2. Lipitor. 3. Finasteride. 4. Tamsulosin. 5. Dulcolax. 6. MiraLAX. 7. Multivitamin. 8. Eliquis 5 mg b.i.d., otherwise, doses are unknown. FAMILY HISTORY: Negative for sudden cardiac or early-onset coronary artery disease. SOCIAL HISTORY: Negative for alcohol, tobacco, or illicit drug use. OBJECTIVE: VITAL SIGNS: Heart rate is 55, blood pressure 118/62, respirations 14. PHYSICAL EXAMINATION: GENERAL: The patient is well groomed, well nourished, and in no apparent distress. He is resting comfortably during the exam. HEENT: He is normocephalic and atraumatic. Sclerae anicteric. EOMs are intact. Oral mucosa is moist and pink with adequate dentition. NECK: Supple without jugular venous distention. HEART: Rate is regularly regular, but slow. PMI is nondisplaced. LUNGS: Clear to auscultation bilaterally. ABDOMEN: Soft and nontender without palpable masses. Hepatojugular reflux is negative. EXTREMITIES: Warm and dry to touch without clubbing, cyanosis, or edema. NEUROLOGIC: Grossly intact and nonfocal. Gait was not assessed. DATABASE: EKG shows sinus bradycardia. Recent monitor from our clinic reveals a tachycardia episodes with paroxysmal SVT, possibly an atypical flutter. The P waves are very difficult to discern with this monitor. Hematology was reviewed and is unremarkable. Chemistry was reviewed. Potassium 4.2, creatinine 1.7 (creatinine is chronically elevated over 1.4 since February of 2018). IMPRESSION: 1. Sick sinus syndrome. 2. Paroxysmal supraventricular tachycardia, possibly atypical atrial flutter. 3. Coronary artery disease with prior bypass grafting. 4. CHADS-VASc score of at least 4, currently on Eliquis 5 mg b.i.d. 5. Chronic kidney disease. RECOMMENDATIONS: We discussed treatment options with his both his tachycardia and bradycardia arrhythmia issues. Recommendation at this point is to move forward with the EP study with possible ablation if typical atrial flutter or SVT are seen. If his tachycardia issues are coming from atypical flutter or atrial fibrillation, we will recommend medical management. I also discussed the possible need for pacemaker with his bradycardia issues and likely conversion pauses. We will keep him n.p.o. after midnight and hold his Eliquis. I will plan for the EP study with possible ablation and possible pacemaker tomorrow afternoon around 2:00 p.m. Risks, benefits, and alternatives have been discussed. Risks include pain, swelling, infection, bruising and bleeding complications, pericardial effusion, pneumothorax, need for chest tube insertion, and arrhythmia issues. The patient voices understanding and wishes to proceed as mentioned. Ultimately with his underlying kidney disease when Eliquis is resumed, he will require reduced dose Eliquis of 2.5 mg b.i.d. in conjunction with his age over 80 years old. If he is noninducible for atrial arrhythmias, then can abstain from oral anticoagulation at this time. Thank you for allowing us to participate in the care of this patient. We will arrange EP study and possible ablation versus pacemaker tomorrow. Job ID: [id number]
--- NOTE | 2018-11-13 02:34 | HP ---
PRIMARY CARE PHYSICIAN: Italo Pandya MD HISTORY OF PRESENT ILLNESS: The patient has a known tachy-vickie arrhythmia pattern, does have a pacemaker placed, was seen in the emergency department on 11/08 for similar issues with lability in blood pressure and urinary incontinence. The patient is followed on an outpatient basis by Dr. Basilio Salinas and by Dr. Bergeron for his heart arrhthymias. The patient had a urine culture performed on 11/07, which was negative and normal by Dr. Basilio Salinas on outpatient basis regarding his incontinence. The patient re-presented to the emergency department following a near syncopal episode. Dr. Bergeron evaluated the patient and felt he needed a heart catheterization given his continued instability and vickie-tachy arrhythmia, and will perform this tomorrow morning. Emergency room consulted on-call primary care for admission overnight until the patient can be evaluated in the [employer]. The patient states he has no shortness of breath or chest pain or palpitations at rest in bed. He is normally ambulatory, lives with his spouse, independent living in their home, has no acute complaints at bedside in the emergency department other than hard mattress. REVIEW OF SYSTEMS: More formal review of systems, the patient denies fevers or chills. Denies cough or congestion. Positive palpitations and near syncopal episode. No current chest pain. No shortness of breath. No abdomen pain. No changes in stools. Positive urinary incontinence. No dysuria. Urinary frequency is positive. No penile discharge. No rashes. No lower extremity edema. No confusion. No headaches. On review of past medical, social, surgical history, the patient with allergies to ampicillin, ciprofloxacin, Bactrim, guaifenesin with Sudafed. PAST MEDICAL HISTORY: Includes BPH with lower urinary obstructive symptoms, incomplete emptying of bladder, coronary artery disease, urethral stricture. Prior history of renal mass. Prior history of pancreatic mass. Prior history of renal cell carcinoma of left kidney. Prior history of nephrectomy of left kidney. Hypertension, aortic aneurysm, abdominal, acid reflux, diverticulitis, and diverticulosis. HOME MEDICATIONS: Include Flonase. Finasteride 5 mg. Tamsulosin 0.4 mg. Atorvastatin 10 mg. Aspirin 81 mg. Tylenol p.r.n. Melatonin 5 mg nightly. Docusate sodium one capsule daily. Valtrex 1 tab t.i.d. p.r.n. oral sores. PAST SURGICAL HISTORY: The patient is status post hernia repair, not specified location, in 1986. Prior urethral dilation in 2012. Prior arteriogram in [address] Hever Muniz with embolism of left internal iliac artery, left radical nephrectomy and retroperitoneal lymph node dissection in January 2018 under the purview of the Dr. Kenji Marie. CABG x3 in 2014. SOCIAL HISTORY: Currently denies smoking. LABORATORY DATA: On review of laboratory workup, troponins x3 0.01, 0.017, 0.01. Creatinine of 1.7, sodium of 138, potassium of 4.2. AST of 17, ALT of 14, albumin of 4.0. Hemoglobin of 12.9, white blood cell count of 5.5, platelet count of 202, neutrophil percent is 77. Chest x-ray with nodularity to left-right lower lung, but on AP, unable to determine exact location recommending a PA and lateral proper view for further evaluation from Radiology. PHYSICAL EXAMINATION: VITAL SIGNS: Per emergency department record, blood pressure is one teen to 140 systolic over 60s to 70s diastolic, pulse is ranging from 50 to 88m respiratory rate of 16, oxygen saturation 100% on room air. GENERAL: The patient is alert and oriented. No acute distress. HEENT: Head is normocephalic, atraumatic. Extraocular movements are intact. Oral mucosa is moist. NECK: Supple. HEART: Slightly bradycardic at time of exam. No murmurs are auscultated. LUNGS: Clear to auscultation bilaterally. No rubs or wheezes. ABDOMEN: Soft, nontender. Positive bowel sounds throughout. LOWER EXTREMITIES: Without cyanosis or edema. The patient is alert, oriented x3. No focal deficits. Speech is normal. ASSESSMENT/PLAN: Tachy-vickie arrhythmia, near-syncope, urinary incontinence, benign prostatic hyperplasia with lower urinary symptom, lung nodule, history of renal cell carcinoma status post nephrectomy with chronic kidney disease, stage 3, at baseline, admitting, so Dr. Bergeron can perform cardiac catheterization tomorrow morning. We will make n.p.o. at midnight. Restart patient's home medications as able. We will follow up on lung nodule with proper PA and lateral tomorrow. If the patient remains inpatient on Sunday, Dr. Basilio Rita reported she would see the patient in the hospital. The patient had prior appointment on Sunday for followup. However, renal function remained stable and no infection found last week. The patient denies any fevers or chills currently. We will default to Cardiology for further management of heart. Job ID: [id number]
[2018-11-13 06:10] LABS: ALT (SGPT) 17 U/L (8-55); AST (SGOT) 19 U/L (5-34); Albumin 3.7 g/dL (3.4-4.8); Alkaline Phosphatase 78 U/L (40-150); Anion Gap 12 mmol/L (10-20); BUN (Urea Nitrogen) 27 mg/dL (8.4-25.7); Bilirubin, Total 0.8 mg/dL (0.2-1.2); Calc. Creatinine Clearance 35 mL/min (70-130); Carbon Dioxide 24 mmol/L (23-31); Chloride 105 mmol/L (98-107); Estimated GFR-MDRD 46; Glucose 91 mg/dL (83-110); Protein, Total 6.7 g/dL (5.8-8.1); Sodium 137 mmol/L (136-145)
[2018-11-13 07:45] LABS: Bilirubin Negative (Negative); Blood, Urine Negative (Negative); Clarity CLEAR (Clear); Glucose, Urine (Dipstick) Negative (Negative); Leukocyte Negative (Negative); Nitrite Negative (Negative); Protein, Urine (Dipstick) Negative (Neg-Trace); Specific Gravity, Urine 1.017 (1.002-1.036); Urobilinogen 0.2 mg/dL (0.2-1.0)
[2018-11-13 07:48] LABS: Bacteria/HPF None Seen HPF (None Seen); Hyaline Casts/LPF 0-3 HYALINE CAST LPF (0-3 Hyaline); RBC/HPF 0-3 HPF (0-3); Squamous Epithelial None Seen HPF (0-3); WBC/HPF None Seen HPF (0-3)
[2018-11-13 07:49] LABS: Urine Culture Reflex No No
[2018-11-13] MEDS: Finasteride 5 MG TAB PO SCH (09:48)
[2018-11-13] MEDS: Tamsulosin HCl 0.4 MG CAP PO SCH ×2 (09:48→20:30)
[2018-11-13] MEDS: Docusate 100 MG CAP PO SCH ×2 (09:52→20:30)
[2018-11-13] MEDS ORDERED: Iopamidol 370 76% 50 ML VIAL FS ONE (10:01)
--- NOTE | 2018-11-13 10:39 | RAD ---
CHEST TWO VIEWS: 11/13/2018 HISTORY: Lung nodule. COMPARISON: 09/23/2018 TECHNIQUE: PA and lateral views of the chest were obtained. FINDINGS: AP view chest demonstrates ectasia of the aorta. Sternotomy wires are seen. No evidence of acute in trathoracic abnormality is seen. Old healed left rib fractures are seen. Previous comparison radiograph from 11/12/2018 is not able to be accessed on the PACS at this time, t o compare with the most recent study. If there is concern for nodular lung parenchymal density, maryam elation with CT chest may be of use. POS: [facility]
[2018-11-13] MEDS ORDERED: PHENYLEPHRINE-NS 100 MCG/ML 10 ML SYRINGE ONE (13:19)
[2018-11-13] MEDS ORDERED: PROPOFOL 200 MG/20 ML VIAL ONE (13:19)
--- NOTE | 2018-11-13 14:27 | PRG ---
DATE OF SERVICE: 11/13/2018 SUBJECTIVE: The patient is doing well this morning. No complaints of dizziness, lightheadedness, chest pain, or shortness of breath. He has a history of sick sinus syndrome. This was found on Holter testing. He presented to the ER with a similar episode with heart palpitations associated with dizziness. He has been evaluated by Dr. Bergeron and is scheduled for an EP study today with possible pacemaker placement. OBJECTIVE: VITAL SIGNS: Temperature 97.3, pulse 70 to 110, respirations 18, O2 saturation 94, and blood pressure 140/86. GENERAL: No acute distress at this time. HEART: Regular rate and rhythm. No murmurs noted. LUNGS: Clear. ABDOMEN: Soft. EXTREMITIES: With no edema. LABORATORY DATA: Sodium 137, potassium 4.0, creatinine 1.45, and BUN 27. Troponin 0.017, 0.010, and 0.012. Possible density right lower lobe, where we would need repeat chest x-ray. ASSESSMENT: 1. Sick sinus syndrome. 2. Status post coronary artery bypass grafting x3 in 2014. 3. History of left renal carcinoma, status post nephrectomy. 4. Hypertension. 5. Hyperlipidemia. 6. History of aortic aneurysm. 7. History of benign prostatic hyperplasia. PLAN: 1. Scheduled for EP study with possible ablation and pacemaker placement at approximately 2 p.m. today. 2. The patient presently stable. We will continue to follow. 3. We will need a repeat chest x-ray at some point. Job ID: [id number]
[2018-11-13] MEDS ORDERED: Heparin 10,000 UNITS/1 ML VIAL ONE (14:43)
[2018-11-13] MEDS ORDERED: Phenylephrine HCL 10 MG/ML VIAL ONE (15:29)
[2018-11-13] MEDS ORDERED: Fentanyl 100 MCG/2 ML VIAL ONE (15:29)
[2018-11-13] MEDS ORDERED: Propofol 500 MG/50 ML VIAL ONE (15:30)
[2018-11-13] MEDS ORDERED: PROPOFOL 0 ML ONE (15:30)
[2018-11-13] MEDS ORDERED: Clindamycin/D5W 600 mg/50 ml Premix Bag ONE (16:06)
[2018-11-13] MEDS ORDERED: Levofloxacin 500 mg/D5W 100 ml Premix Bag ONE (16:06)
[2018-11-13] MEDS ORDERED: DOPamine 400 MG/D5W 250 ML 0 ML ONE (16:07)
[2018-11-13] MEDS ORDERED: Isoproterenol 0.2 MG/1 ML AMP ONE (16:07)
[2018-11-13] MEDS ORDERED: Promethazine HCl 25 MG/ML VIAL SLOW IVP PRN (18:25)
[2018-11-13] MEDS ORDERED: Ondansetron HCl/PF 4 MG/2 ML Vial IVP PRN (18:25)
[2018-11-13] MEDS ORDERED: Promethazine HCl 25 MG/ML VIAL IM PRN (18:25)
--- NOTE | 2018-11-13 20:28 | RAD ---
FRONTAL RADIOGRAPH CHEST PORTABLE UPRIGHT 11/13/18 COMPARISON: 11/12/18 HISTORY: Pacemaker placement. FINDINGS: There is a dual lead transvenous pacing device inserted via the left subclavian approach. The superio r aspect of the pacing leads are not fully imaged on this examination in the left supraclavicular reg ion. No pneumothorax is seen. No focal consolidation or alveolar edema. IMPRESSION: Dual lead left sided pacing device as above. POS: [facility]
[2018-11-13] MEDS: Atorvastatin Calcium 10 MG TAB PO SCH (20:30)
[2018-11-13] MEDS: Aspirin 81 mg Enteric Coated Tablet PO SCH (20:30)
--- NOTE | 2018-11-13 22:47 | OP ---
DATE OF PROCEDURE: 11/13/2018 This is an electrophysiology study report. REASON FOR PROCEDURE: Mr. Rosales is an 88-year-old gentleman with prior history of atrial flutter, mitral and aortic regurgitation, prior history of left nephrectomy, hypertension, and hyperlipidemia, who presented with a syncopal spell and markedly bradycardic on presentation but had stable vital signs. Prior to that, he was evaluated for tachy palpitations and short atrial flutter appearing, SVT was documented. Could have also considered SVT, possibly AVNRT. This was documented on a court monitor as outpatient. He is here for evaluation of his atrial arrhythmias. DESCRIPTION OF PROCEDURE: The patient received propofol by Anesthesia specialist. After adequate level of sedation achieved, the left femoral venous area was prepped, draped, and anesthetized using subcutaneous lidocaine. 6-[place]ib[place] short sheath was introduced and an 8-[place] short sheath was introduced as well. Through this, octapolar and decapolar catheter was advanced to the right ventricle, His bundle, CS, and the right atrial location. Pacing, mapping, and recording were performed over each location. The following findings, baseline rhythm was sinus rhythm with cycle length of 1200 milliseconds, DC 202, QRS 100, QT 398, AH 142, HV 60 milliseconds. Sinus node recovery time was 766, corrected sinus node recovery time was 560. AV Wenckebach cycle length was 460 milliseconds. Retrograde Wenckebach cycle length was 440 milliseconds. Concentric retrograde VA conduction was noted with dual AV sheyla physiology not present. Following that, burst atrial pacing was performed down to 200 milliseconds and initially, we were not able to induce any arrhythmias. Isuprel was administered up to 6 mcg per minute. Burst atrial pacing double atrial extrastimuli were delivered and eventually with tight atrial pacing, we were able to induce atypical atrial flutter/atrial fibrillation. Eventually his rhythm was shock terminated. The decision was made at this point to proceed with pacemaker implant. Sheaths were pulled in the laborer tree tapping. Cardiac silhouette did not change with the procedure. CONCLUSION: 1. Inducible atrial fibrillation/left atrial flutter. No other supraventricular tachycardia. 2. Sinus node dysfunction, likely contributing to patient's syncopal symptoms, pacemaker possible to allow for rate controlling medications in the future. 3. Resume oral anticoagulation post pacemaker. Job ID: [id number]
[2018-11-14] MEDS: Tamsulosin HCl 0.4 MG CAP PO SCH (07:57)
[2018-11-14] MEDS: Docusate 100 MG CAP PO SCH (07:57)
[2018-11-14] MEDS: Finasteride 5 MG TAB PO SCH (07:58)
[2018-11-14 08:11] VITALS: BP 156/74; TEMP 98
--- NOTE | 2018-11-14 09:36 | DIS ---
DATE OF ADMISSION: 11/13/2018 DATE OF DISCHARGE: 11/14/2018 DISCHARGE DIAGNOSES: 1. Sick sinus syndrome. 2. Status post coronary artery bypass grafting x3 in 2015. 3. Status post left renal carcinoma with nephrectomy. 4. Hypertension. 5. Hyperlipidemia. 6. History of aortic aneurysm. 7. History of BPH. FOLLOWUP: Follow up with Dr. Bergeron and follow up with Dr. Italo Pandya in 1 week. DISCHARGE MEDICATIONS: 1. Clindamycin 300 p.o. t[address]i.d. #[address] Bergeron. 2. Aspirin 81 daily. 3. Lipitor 10 daily. 4. Colace 100 b.i.d. 5. Finasteride 5 daily. 6. Flomax 0.4 p.o. b.i.d. 7. Eliquis 5 p.o. b.i.d. 8. MiraLAX 17 g p.o. at bedtime p.r.n. BRIEF HISTORY: This is an 88-year-old white male with known tachy-vickie arrhythmia, who has been followed by Dr. Bergeron, who presents with dizziness, lightheadedness, who was seen in the emergency room and was found to have bradycardia. He has a history of AFib, atrial flutter. He also complained of palpitations and therefore, he was admitted for further evaluation. HOSPITAL COURSE: Dr. Bergeron was consulted. The patient underwent an EP study and underwent ablation as well as placement of a pacemaker. The patient this morning is in sinus rhythm. He is doing well. No complaints of any chest pain, shortness of breath, nausea, or vomiting. He is now ready for discharge. He will be discharged on the above medications. He will follow up with Dr. Bergeron and myself in approximately 1 week. White count is 5.5, H and H of 12 and 41. Electrolytes normal. Creatinine 1.45, BUN 27. Job ID: [id number]
--- NOTE | 2018-11-14 11:04 | PDOC.CTH ---
Cardiology Progress Note - Subjective EP PROGRESS NOTE: 11/14/18 Seen as follow up following EPS with pacemaker implant yesterday. Feels well today. No pain or bleeding complaints at left groin or PPM site. Feels ready to go home. 8 point ROS: unremarkable - Objective Vital Signs Temp Pulse Resp BP BP Pulse Ox 11/14/18 07:44 98 F 74 18 156/74 H 95 11/14/18 04:28 98.1 F 72 16 136/90 96 11/13/18 23:53 67 18 144/69 H 99 Weight 149 lb 12.8 oz 11/13/18 11/14/18 11/15/18 06:59 06:59 06:59 Intake Total 210 270 Output Total 300 Balance 210 -30 - Physical Examination General/Neuro: alert & oriented x3, NAD Neck: carotid US brisk, no JVD present Lungs: CTA, unlabored respirations Heart: PMI normal, RRR Abdomen: NT/ND, soft - Telemetry Telemetry Rhythm: SR, demand pacing. - Labs Result Diagrams: 11/12/18 08:14 11/13/18 05:16 Troponin/CKMB Troponin I 0.012 ng/mL (< 0.028) 11/12/18 19:28 - Assessment/Plan 1. Atrial fibrillation and atypical atrial flutter - inducible on EPS. No SVT or right sided arrhythmias induced. - resume reduced dose eliquis 2.5mg BID tomorrow AM. (was on 5mg BID at home prior) 2. Sick sinus syndrome -s/p dual chamber PPM implant yesterday. [employer]. pending device check this AM before DC 3. Chronic kidney disease CXR post implant stable. Antibiotic Rx on chart for clindamycin post PPM implant. DC instructions provided. DC pending completion of device check this AM. If stable, will DC home with 2 week wound check.
[2018-11-15] MEDS ORDERED: Apixaban 2.5 MG TAB PO SCH (09:00)
--- NOTE | 2018-11-16 23:03 | EKG ---
Test Reason : WEAKNESS Blood Pressure : / mmHG Vent. Rate : 072 BPM Atrial Rate : 072 BPM P-R Int : 224 ms QRS Dur : 104 ms QT Int : 392 ms P-R-T Axes : 033 -40 024 degrees QTc Int : 429 ms Sinus rhythm with 1st degree A-V block Left axis deviation Septal infarct , age undetermined Abnormal ECG Confirmed by DONTE MCKEON, TAYE ([id number]), script editor KIM CANDELARIA ([id number]) on 11/16/2018 11:03:04 PM Referred By: Confirmed By:TAYE KENT MD
== END 2018-11-14 11:51 | disposition home or self-care (01) | DRG 243 ==
LOC: ERS 07:38 → 2SW 12:31 → OBSVTOIN 11-13 18:13
PROVIDERS: ADMIT Family Medicine; ATTEND Family Medicine
PROC: 0JH606Z Insertion of Pacemaker, Dual Chamber into Chest Subcutaneous Tissue and Fascia, Open Approach (ICD-10-PCS; principal; 2018-11-13)
PROC: 02HK3JZ Insertion of Pacemaker Lead into Right Ventricle, Percutaneous Approach (ICD-10-PCS; 2018-11-13)
PROC: 02H63JZ Insertion of Pacemaker Lead into Right Atrium, Percutaneous Approach (ICD-10-PCS; 2018-11-13)
PROC: 4A023FZ Measurement of Cardiac Rhythm, Percutaneous Approach (ICD-10-PCS; 2018-11-13)
PROC: 4A0234Z Measurement of Cardiac Electrical Activity, Percutaneous Approach (ICD-10-PCS; 2018-11-13)
PROC: 02K83ZZ Map Conduction Mechanism, Percutaneous Approach (ICD-10-PCS; 2018-11-13)
DX: I49.5 Sick sinus syndrome (principal); I48.4 Atypical atrial flutter; N40.1 Benign prostatic hyperplasia with lower urinary tract symptoms; N39.498 Other specified urinary incontinence; I12.9 Hypertensive chronic kidney disease with stage 1 through stage 4 chronic kidney disease, or unspecified chronic kidney disease; N18.3 Chronic kidney disease, stage 3 (moderate); E78.5 Hyperlipidemia, unspecified; I25.10 Atherosclerotic heart disease of native coronary artery without angina pectoris; I08.0 Rheumatic disorders of both mitral and aortic valves; Z85.528 Personal history of other malignant neoplasm of kidney; Z88.1 Allergy status to other antibiotic agents; Z88.0 Allergy status to penicillin; Z88.2 Allergy status to sulfonamides; I48.91 Unspecified atrial fibrillation; Z88.8 Allergy status to other drugs, medicaments and biological substances; Z79.01 Long term (current) use of anticoagulants; Z79.82 Long term (current) use of aspirin; Z79.899 Other long term (current) drug therapy; Z90.5 Acquired absence of kidney; Z95.1 Presence of aortocoronary bypass graft
CPT/HCPCS: 33208; 36005; 36415; 71045; 71046; 75820; 76942; 80053; 81001; 84484; 85025; 93005; 93010; 93613; 93621; 93623; 93798; C1730; C1769; C1785; C1898; J1265; J1644; J1956; J2370; J2704; J3010; J3490

== ENCOUNTER 2019-04-20 06:46 | Emergency (ER) | payer MEDICARE, BC ==
[2019-04-20] MEDS ORDERED: Dexamethasone 4 mg/ml Vial ONE (08:56)
== END 2019-04-20 09:16 | disposition home or self-care (01) ==
LOC: ERS 06:46
DX: L50.0 Allergic urticaria (principal); E78.5 Hyperlipidemia, unspecified; I10 Essential (primary) hypertension; F17.220 Nicotine dependence, chewing tobacco, uncomplicated; Z79.899 Other long term (current) drug therapy; Z79.82 Long term (current) use of aspirin
CPT/HCPCS: 96372; J1100